=== PATIENT | male | born 1935 | race Caucasian/White ===

== ENCOUNTER 2017-03-25 06:43 | Inpatient (IN) ==
[2017-03-25] MEDS ORDERED: CeFAZolin Pre 2,000 MG/100 ML 2,000 MG/100 ML BAG IVPB ONE (07:09)
[2017-03-25] MEDS ORDERED: Lidocaine -MPF 1% 2 ML VIAL ID ONE (07:09)
[2017-03-25] MEDS ORDERED: Ringers Solution, Lactated 1,000 ML IVC SCH (07:15)
[2017-03-25] MEDS ORDERED: Heparin 1,000 UNITS/500 mL NS 500 ML ONE (07:47)
--- NOTE | 2017-03-25 07:47 | History & Physical Report ---
Date of Encounter: 03/25/17 Time of Encounter: 07:46 24 Hour HP Update - Instructions Instructions: If the History and Physical is less than 30 days old and was completed prior to A.M. admission and or procedure and has NOT been updated on calendar day of procedure please complete this update prior to performing procedure. - Update Patient reports changes in Medical Condition: No Changes in examination, assessment, or condition: No Changes in Medication: No Preop tests/diagnostics Reviewed: Yes Surgery Remains Indicated: Yes Consent for Planned Operative Procedure(s) Verified: Yes - Pre-Operative Checklist Preoperative Checklist Indicated: Yes Prophylactic Antibiotic Ordered: Yes Home Medications Include Beta Chalo: No Beta Chalo Taken Today (Day of Surgery): No Beta Chalo Taken Yesterday (Day Prior to Surgery): No Is VTE Prophylaxis Indicated?: Yes
--- NOTE | 2017-03-25 08:10 | Anesthesia Evaluation PreOp ---
Date of Encounter: 03/25/17 Time of Encounter: 08:08 - Past History Planned Operation: R fem-pop Cardiac History: HTN, Hyperlipidemia, Arrhythmia Pulmonary History: Denies Any Significant HX SALES AND SERVICE SPECIALIST History: Denies Any Significant HX Other Medical History: Other (hx lymphoma s/p surgery, chemo, radiation to neck in 2015) Anesthesia History: No Prior Anesthetic Complications Alcohol Use: none Drug use: none Medications and Allergies Omeprazole [PriLOSEC] 40 mg PO DAILY 07/30/15 [History] Rivaroxaban [Xarelto] 20 mg PO DAILY 07/30/15 [History] Cholecalciferol (Vitamin D3) [Vitamin D3] 2,000 unit PO DAILY 02/14/16 [History] Simvastatin [Zocor] 0.5 tab PO QPM 02/14/16 [History] Ascorbic Acid/Vitamin E/Biotin [Hair Skin Nails-Biotin Gummies] 1 each PO DAILY 06/16/16 [History] Diltiazem CD (24hr) [Cardizem CD] 240 mg PO DAILY 01/26/17 [History] Allergies No Known Allergies Allergy (Verified 01/28/16 13:17) - Meds/Allergy Pre-op Review Medications Reviewed: Yes Allergies Reviewed: Yes Beta Blockers on Current Med List: No Anesthesia Results - Labs Laboratory Tests 03/19/17 03/19/17 13:33 13:33 WBC 5.6 Hgb 13.6 Hct 40.6 Plt Count 165 APTT 29.9 Laboratory Tests 03/19/17 13:33 Sodium 140 Potassium 4.0 Chloride 103 Carbon Dioxide 26 BUN 16 Creatinine 1.26 H Est GFR ( Amer) > 60 Est GFR (Non-Af Amer) 55 L BUN/Creatinine Ratio 13 Glucose 84 - Imaging EKG: report reviewed, image reviewed (A fib) Anesthesia Exam Last Vital Signs Temp 97.7 F 03/25/17 07:28 Pulse 78 03/25/17 07:28 Resp 18 03/25/17 07:28 BP 138/79 03/25/17 07:28 Pulse Ox 97 03/25/17 07:28 Weight: 69 kg NPO (# of Hours): >> 8 hrs - HEENT Pupil (Motor): Pupils equal, EOMI Mallampati: II Teeth: Edentulous Denture Type: Upper: Complete, Lower: Complete Oral Opening: Greater than 3 - SALES AND SERVICE SPECIALIST LOC: Oriented SALES AND SERVICE SPECIALIST Motor: Normal RUE, Normal LUE, Normal RLE, Normal LLE, Normal Face - Cardiac Rhythm: Irregular Murmur: None - Pulmonary Breath Sounds: bilateral Clear Respiratory Effort: Symmetrical Anesthesia Assess/Plan ASA Score: 3 Modified Dianne Scale for Level of Consciousness: Cooperative, oriented, and tranquil Anesthetic Plan: General Monitoring Plan: Standard Monitors, A-Line Recovery Plan: PACU
[2017-03-25] MEDS ORDERED: *HR* FentaNYL (PF) 100 MCG/2 ML VIAL ONE ×2 (08:11→12:23)
[2017-03-25] MEDS ORDERED: *HR* Rocuronium Bromide 50 MG/5 ML VIAL ONE ×2 (08:11→10:32)
[2017-03-25] MEDS ORDERED: *HR* Propofol 200 MG/20 ML VIAL IVP ONE (08:11)
[2017-03-25] MEDS ORDERED: *HR* Succinylcholine 200 MG/10 ML VIAL IVP ONE (08:11)
[2017-03-25] MEDS ORDERED: Lidocaine -MPF 2% 2 ML VIAL ONE (08:12)
[2017-03-25] MEDS ORDERED: Lacri-Lube 3.5 GM TUBE ONE (08:26)
[2017-03-25] MEDS ORDERED: *HR* Phenylephrine 10 MG/ML VIAL ONE (09:35)
[2017-03-25] MEDS ORDERED: *HR* Heparin 5,000 UNIT/ML VIAL ONE ×2 (10:22→10:56)
[2017-03-25] MEDS ORDERED: *HR* HYDROmorphone (PF) 1 MG/ML SYRINGE IVP PRN (10:39)
[2017-03-25] MEDS ORDERED: Ondansetron 4 MG/2 ML VIAL IVP ONE (10:39)
[2017-03-25] MEDS ORDERED: EPHEDrine 50 MG/ML VIAL ONE (11:13)
[2017-03-25] MEDS ORDERED: Albumin Human 5% 25.0 GM/500 ML VIAL ONE (11:16)
[2017-03-25] MEDS ORDERED: Neostigmine Methylsulfate 3 MG/3 ML SYRINGE ONE (13:33)
[2017-03-25] MEDS ORDERED: Protamine Sulfate 50 MG/5 ML VIAL IVP ONE (14:09)
--- NOTE | 2017-03-25 14:34 | Operative Note ---
Date of procedure: 03/25/17 Pre-op diagnosis: claudication/PAD Post-op diagnosis: same Procedure: Right popliteal and tibial peroneal trunk and anterior tibial artery endarterectomy with bovine pericardial patch angioplasty Right femoral to tibial peroneal trunk bypass graft with 6 mm PTFE Distaflo Complications: None Anesthesia: GETA Surgeon: Jovanny Palacios Estimated blood loss (cc): 250 Specimen: None Condition: stable Disposition: PACU Procedure in Detail: History Pablo Foreman is an 82-year-old white male with known vascular disease. He is status post repair of a right common femoral artery aneurysm and angioplasty of the superficial femoral artery in February 2013. Patient has been followed in the outpatient clinic. He had deterioration of his physical status and worsening of his noninvasive testing results. He underwent angiography last week. This demonstrated right SFA and popliteal artery occlusion and 2 of the 3 tibial arteries occluded on the right lower extremity. He also has a aneurysm in the left common femoral artery and occlusion of the left superficial femoral artery. Intervention was recommended for the right upper extremity with bypass grafting. The patient comes for that procedure. Procedure After informed consent was obtained the patient was taken to the operating room. General endotracheal anesthesia was established with an arterial line placed for monitoring. The right lower extremity was sterilely prepped and draped. A timeout protocol was observed. The operation was begun at the below the knee popliteal area. An incision was made on the medial proximal aspect of the right calf. Dissection was carried down to reveal the neurovascular bundle. There was significant inflammatory change present with the artery and vein adherent to each other. This required a prolonged dissection in order to satisfactorily free the artery from the vein. Dissection was made selectively of the below the knee popliteal as well as anterior tibial and the tibial peroneal trunk. There was marked and dense thick calcified plaque in the tibial peroneal trunk. There is diffuse disease in the other vessels. Attention was then directed to the right groin. Using the old surgical incision from the operation 4 years ago the groin was entered. Dense and very thick scarring was identified and required a very tedious dissection. Eventually the common femoral artery and profunda femoris as well as superficial femoral artery were identified and controlled. Dissection was then made of the greater saphenous vein. He was identified at the groin level and to be a soft and normal diameter vessel. It was then dissected distally. When dissecting about two th[address] the way from the groin to the knee the vein became very small superficial and was unsatisfactory for use as a conduit. Therefore the use of a vein bypass was rejected as there was inadequate length available. Therefore a 6 mm PTFE was selected. A subsartorial tunnel was created and the bypass graft was passed through the tunnel. 5000 units of heparin were administered intravenously. After a three- minute delay the below the knee popliteal and tibial peroneal trunk were then opened. The patient had dense thick and calcific plaque present here. The vessel was then dissected of this plaque. This allowed for backbleeding from the anterior tibial the distal tibials as well as the below the knee popliteal artery. This area was flushed with heparinized saline. A bovine pericardial patch was then fashioned over this endarterectomy site. The bovine pericardium was sewn into position using 2 6-0 Prolene sutures. After this was accomplished the synthetic graft was anastomosed using endograft to side of bovine pericardial patch. This was sewn into position again using 6-0 Prolene. After appropriate backbleeding and flushing this distal anastomotic and tibial peroneal trunk area was opened. The graft was then clamped. Attention was then directed to the common femoral artery and the proximal anastomosis. An arteriotomy was made over the graft and the distal aspect of the common femoral artery. Chronic and subacute thrombus was identified. This was removed. Attempts at passing a 4 [place] Alondra catheter into the superficial femoral artery were unsuccessful and blocked by chronic clot. Clot was removed from the distal aspect of the common femoral artery that appeared to be subacute and age. The profunda femoris artery remains open. The synthetic bypass graft was then anastomosed end to side to the common femoral artery interposition graft. 6 -0 Prolene suture was used again for this anastomosis. After appropriate backbleeding and flushing the graft was opened. The patient tolerated this well. There is no hemodynamic distress. Doppler signals were identified over the graft and augustine vessels exposed in the groin and thigh and calf area. Doppler signals were also identified over the 2 cells pedis and posterior tibial artery at the ankle. The wounds were then irrigated and hemostasis achieved. A number of topical agents were needed to be used to control the bleeding and oozing at the distal aspect. Eventually 10 mg of protamine were administered to reverse the heparin effect. With this done all the incisions were irrigated and closed using absorbable suture. [place] were used to close the skin edges. Dry sterile dressings were applied. The patient was extubated in the operating room and taken to the recovery room in stable condition. There were no intraoperative complications.
[2017-03-25] MEDS ORDERED: *HR* Morphine 2 MG/ML SYRINGE IVP PRN ×2 (15:30)
[2017-03-25] MEDS ORDERED: Naloxone 0.4 MG/ML INJ IVP PRN (15:30)
[2017-03-25] MEDS ORDERED: Ondansetron 4 MG/2 ML VIAL IVP PRN (15:30)
[2017-03-25] MEDS ORDERED: Acetaminophen 325 MG TABLET PO PRN (15:30)
--- NOTE | 2017-03-25 15:49 | Anesthesia Evaluation Post Op ---
Date of Encounter: 03/25/17 Time of Encounter: 15:48 - Vital Signs Vital Signs: Last Vital Signs Temp 97.4 F L 03/25/17 15:10 Pulse 68 03/25/17 15:30 Resp 12 03/25/17 15:30 BP 121/70 03/25/17 15:30 Pulse Ox 95 03/25/17 15:30 - Lungs Lungs: Clear Ascult./Percussion - Airway Airway: Non-obstructed - Cardiovascular Baseline Rhythm - Mental Status Mental Status: Alert & Oriented, Answers Appropriately - Pain Pain Scale: 3 - Nausea Vomiting Nausea Vomiting: Not Present - Hydration Hydration: Ice chips - Discharge PostOp Status: Transfer Patient to floor
[2017-03-25] MEDS: ceFAZolin 2,000 MG in D5% in Water 100 ML IVPB SCH ×2 (16:59→23:41)
[2017-03-25] MEDS: *HR* HYDROcodone/Acet 5/325 mg TABLET PO PRN (20:08)
[2017-03-26 05:56] LABS: Hematocrit 26.4 % (37.5-50.1); Immature Granulocytes % 0.4 % (0-4); Lymphocytes # 1.4 K/mcL (0.6-4.6); Lymphocytes % 24.5 %; Mean Corpuscular Hemoglobin 27.4 pg (28.0-33.3); Mean Corpuscular Volume 83.3 fL (83.0-100.0); Mean Platelet Volume 9.7 fL (9.4-12.4); Monocytes # 0.5 K/mcL (0.0-1.3); Neutrophils # 3.8 K/mcL (1.6-8.9); Platelet Count 118 K/mcL (140-400); Red Blood Count 3.17 M/mcL (4.19-5.50); Red Cell Distribution Width 15.9 % (11.5-14.5); Segmented Neutrophils % 66.1 %
[2017-03-26 05:59] LABS: BUN/Creatinine Ratio 13 (6-26); Blood Urea Nitrogen 15 mg/dL (8-26); Calcium 8.3 mg/dL (8.6-10.8); Carbon Dioxide 25 mEq/L (19-29); Chloride 105 mEq/L (98-109); Glucose 129 mg/dL (70-99); Osmolality,Calculated 289 (280-300); Potassium 4.2 mEq/L (3.5-4.5); Sodium 138 mEq/L (136-145); eGFR For African Americans > 60 (> 60); eGFR For Non-African Americans > 60 (> 60)
[2017-03-26 06:19] LABS: Hemoglobin 8.7 g/dL (12.9-16.9)
[2017-03-26] MEDS: ceFAZolin 2,000 MG in D5% in Water 100 ML IVPB SCH (07:38)
[2017-03-26] MEDS ORDERED: Diltiazem CD (24hr) 240 MG CAPSULE PO SCH (09:00)
[2017-03-26] MEDS ORDERED: Multivit/Ca/Min/Fe/FA 1 TAB TABLET PO SCH (09:00)
[2017-03-26] MEDS ORDERED: NON-FORMULARY MEDICATION 1 EACH EACH (Multivits Min/Iron/Fa/Herb#186 [Hair, Skin And Nails PO SCH (09:00)
--- NOTE | 2017-03-26 09:21 | Discharge Summary ---
Date of Encounter: 03/26/17 Time of Encounter: 09:00 - Discharge Diagnosis (1) PAD (peripheral artery disease) Priority: Primary Status: Chronic Comments: The patient has recurrent right superficial femoral and popliteal artery disease which has progressed onto chronic total occlusion of the superficial femoral and popliteal artery as well as diffuse tibial artery disease. (2) Bilateral iliac artery aneurysm Priority: Secondary Status: Chronic Comments: Known bilateral common iliac artery aneurysms (3) Femoral artery aneurysm, left Priority: Secondary Status: Chronic Comments: Chronic left common femoral artery aneurysm (4) Postoperative anemia due to acute blood loss Priority: Secondary Status: Acute Comments: Acute blood loss anemia following elective surgery in elderly patient with multiple comorbid conditions. Blood loss is expected and anticipated in the extensive revascularization that the patient underwent yesterday (5) Atrial fibrillation, chronic Priority: Secondary Status: Chronic Comments: Chronic atrial fibrillation under medical treatment - Discharge Medications Prescriptions: HYDROcodone/Acet 5/325 mg [[place] 5-325 mg] 1 tab PO Q6H PRN #14 tablet PRN Reason: Moderate Pain Home Medications: Omeprazole [PriLOSEC] 40 mg PO DAILY 07/30/15 [History] Rivaroxaban [Xarelto] 20 mg PO DAILY 07/30/15 [History] Simvastatin [Zocor] 5 mg PO QPM 02/14/16 [History] Diltiazem CD (24hr) [Cardizem CD] 240 mg PO DAILY 01/26/17 [History] Multivitamin [Multi-Day Vitamins] 1 tab PO DAILY 03/25/17 [History] Multivits Min/Iron/FA/Herb#186 [Hair, Skin and Nails Caplet] 1 tab PO DAILY [History] HYDROcodone/Acet 5/325 mg [[place] 5-325 mg] 1 tab PO Q6H PRN #14 tablet 03/26/17 [Rx] Allergies/Adverse Reactions: Allergies No Known Allergies Allergy (Verified 01/28/16 13:17) Date of admission: 03/25/17 15:04 Primary care physician: Ambrosio Burdick DO Consults: none Procedure(s) Performed: Right femoral to tibial peroneal trunk bypass graft with 6 mm PTFE Distaflo Right popliteal and tibial artery endarterectomy with bovine pericardial patch angioplasty Discharging clinician: Jovanny Palacios Anticipated date of discharge: 03/26/17 - Patient Status Disposition: Home, Self-Care Condition: Good Functional capacity at discharge: uses cane/walker Overall status at discharge: patient is progressing back to baseline - Discharge Instructions Follow Up With: Ambrosio Burdick DO [Primary Care Provider] - 03/31/17 11:30 am () Jovanny Palacios MD [Partnered Physician] - 04/08/17 11:30 am Additional Instructions: Encourage regular and daily ambulation as much as possible. Elevate right lower extremity while in the seated position. Keep right lower extremity surgical sites dry for 5 days following surgery. Follow-up with Dr. Palacios in 2 weeks. Resume usual home medication including Xarleto later today. No automobile driving. No lifting greater than 10 pounds. - Diet and Activity Activity: increase activity as tolerated Diet: advance to your usual diet - Hospital Course Hospital course: Mr. Foreman is a 82 year old male With known peripheral vascular occlusive disease and aneurysm disease. He presents with significant right lower extremity symptoms and abnormal physical exam and noninvasive testing. An angiogram performed last week demonstrated severe right superficial femoral and popliteal and tibial artery disease. An endovascular solution was not feasible and so therefore the patient was admitted for direct surgical reconstruction. He was also found to have a left superficial femoral artery chronic total occlusion and redemonstration of aneurysms of the common iliac arteries bilaterally and the left common femoral artery. The left femoral artery and superficial femoral artery will need to be dealt with as an inpatient with surgical reconstruction sometime in the future after he has recovered from this right lower extremity surgery. The greater saphenous vein in the right lower extremity was found to be inadequate and could not be used as a conduit. Therefore a synthetic bypass graft was constructed from the common femoral artery to the tibial peroneal trunk. There was significant disease present in the popliteal and tibial system as noted on the angiogram and so therefore he required an extensive endarterectomy of the below the knee popliteal and tibial peroneal trunk and orifice of the anterior tibial artery as the anterior tibial artery was the dominant runoff to the right lower extremity. The patient had no periprocedural problems. He was noted to have mild acute blood loss anemia on his repeat hemoglobin that was checked this morning. He is asymptomatic from this process and does not require transfusion. His chronic atrial fibrillation remained stable with a pulse rate in the 90s to 100s. His Xarleto will be restarted later today. The patient will ambulate and if his ambulation is safe we will permit him to be discharged later this afternoon. Instructions in regards to his diet and exercise and wound care will be provided to the patient prior to discharge. - Time Spent with Patient Total time spent providing and/or coordinating discharge services: Exam Vital Signs, Last 4 Hours Temp Pulse Resp BP 03/26/17 07:30 97.6 F 89 16 109/53 General: Present: Conversant, No Apparent Distress HEENT: Present: Atraumatic, Normocephaly Neck: Absent: JVD Cardiac: Present: Irregular Rhythm Lungs: Present: Normal Breath Sounds Neuro: Present: Alert and responsive, No focal deficits noted Abdomen: Present: Soft Vascular: Present: Edema (Mild right lower extremity edema following surgery which is anticipated in this circumstance.), Color/Temperature (Improved color and temperature of right foot following bypass surgery.), Other (Doppler signals 3 at right ankle following surgery.) Skin: Present: No rashes noted on visualized skin - VTE Documentation of Mechanical Device: Intermittent pneumatic compression device
[2017-03-26] MEDS: *HR* HYDROcodone/Acet 5/325 mg TABLET PO PRN ×2 (10:52→17:36)
[2017-03-26 16:07] VITALS: BP 115/71
== END 2017-03-26 18:28 | disposition home or self-care (01) | DRG 253 ==
LOC: SAMDAY 06:43 → 2NNU 15:04
PROVIDERS: ADMIT Surgery Vascular Surgery; ATTEND Surgery Vascular Surgery

== ENCOUNTER 2018-04-27 20:01 | Observation (INO) ==
[2018-04-28] MEDS ORDERED: Naloxone 0.4 MG/ML INJ IVP PRN (00:03)
[2018-04-28] MEDS ORDERED: Acetaminophen 325 MG TABLET PO PRN (00:03)
[2018-04-28] MEDS ORDERED: Albuterol Neb 0.63 MG/3 ML VIAL IH PRN (00:11)
[2018-04-28] MEDS ORDERED: Ipratropium/Albuterol Neb 3 ML IH PRN (00:12)
--- NOTE | 2018-04-28 01:03 | Internal Med History&Physical ---
Date of Encounter: 04/27/18 Time of Encounter: 23:30 Internal Medicine - H&P: HPI Chief complaint: Hemoptysis Admitted From: Home Plans for Post Hospital Care: Home History of present illness: Mr. Foreman is a 83 year old male presented to ER for hemoptysis. Past medical history is significant for A. fib on xarelto, COPD, anemia, hyperlipidemia. Patient has hemoptysis from yesterday evening. Patient has several times red or dark blood in sputum. Most of the time it is pure blood. Patient has increased cough recently. Patient also reports fatigue and exertional intolerance for several weeks. Patient has exertional shortness of breath and has desaturation on exertion. Patient denies chest pain, nausea. Patient reported low-grade fever at 100.4 on the night before last night. Patient was also found elevated troponin. Patient denies coffee ground emesis. Patient is taking iron pills, which caused black stool. Patient last xarelto pill was yesterday evening (04/26 evening). Past Med Surg Social Fam HX - Past Medical History Medical history: atrial fibrillation, cancer, coronary artery disease, DVT, GERD , hyperlipidemia, hypertension, malignancy Additional medical history: iliac aneurysm repair Psychiatric history: no psych history - Past Surgical History Surgical History: other Additional surgical history: R leg Iliac Aneurysm Repair, left ear drum repair - Social History Smoking Status: Former smoker Smokeless Tobacco Status: No Alcohol use: none Drug use: none - Family History Mother Living Status: Hx Family Cardiac Disorders: Yes Father Living Status: Hx Family Cardiac Disorders: Yes Internal Medicine - H&P: Meds Rivaroxaban [Xarelto] 20 mg PO DAILY 07/30/15 [History] Simvastatin [Zocor] 10 mg PO QPM 02/14/16 [History] Diltiazem CD (24hr) [Cardizem CD] 240 mg PO DAILY 01/26/17 [History] Albuterol Neb [AccuNeb] 0.63 mg IH PRN PRN 04/27/18 [History] Albuterol Sulfate [Proair Hfa] 2 puff IH Q6H 04/27/18 [History] Budesonide/Formoterol 160/4.5 [Symbicort 160/4.5] 1 puff IH BIDR 04/27/18 [ History] Cholecalciferol (Vitamin D3) [Vitamin D] 2,000 unit PO DAILY 04/27/18 [History] Ferrous Sulfate [High Potency Iron] 65 mg PO DAILY 04/27/18 [History] Omeprazole [PriLOSEC] 20 mg PO DAILY 04/27/18 [History] 3 Allergy/AdvReac Type Severity Reaction Status Date / Time No Known Allergies Allergy Verified 02/18/18 14:34 All Systems PM: A 10-system review of systems was performed and is negative for pertinent findings except as documented above in the HPI. - Constitutional Vitals: Temp Pulse Resp BP Pulse Ox 98.1 F 96 14 100/54 98 04/27/18 21:54 04/27/18 21:54 04/27/18 21:54 04/27/18 21:54 04/27/18 21:54 General appearance: Present: A&O X 3, no acute distress, answers questions appropriately - Head Head exam: Present: atraumatic, normocephalic - Eye Eye exam: Present: PERRL, conjuntiva pink, sclera anicteric Pupils: Present: PERRL - Neck Neck exam general surgery: Present: supple, trachea midline. Absent: lymphadenopathy - Respiratory Respiratory exam: Present: CTAB. Absent: accessory muscle use, rales, rhonchi, wheezes - Cardiovascular Cardiovascular exam: Present: RRR, +S1, +S2. Absent: diastolic murmur, gallop, rubs, systolic murmur - GI/Abdominal GI/Abdominal exam: Present: normal bowel sounds, soft, no peritoneal signs. Absent: distended, tenderness - Extremities Exam Extremities exam: Present: warm, radial pulses palpable and symmetrical. Absent : calf tenderness, cyanotic, pedal edema - Neurological Exam Neurological exam: Present: CN II-XII intact, oriented X3, no focal deficits. Absent: pronater drift, facial droop, speech deficit - Skin Skin exam: Present: dry, intact - Assessment and plan (1) Elevated TSH Current Visit: Yes Status: Acute Assessment and plan: Mild elevated TSH. Will check T3-T4 level. Probably subclinical hypothyroidism , may need close follow-up as outpatient. (2) Hemoptysis Current Visit: Yes Status: Acute Assessment and plan: Etiology is undetermined. Patient is on xarelto. - We will hold xarelto at this point. - CT chest to rule out mass. - Pulmonology consult for further management. - Closely monitor patient. Oxygen supportive treatment. (3) COPD (chronic obstructive pulmonary disease) Current Visit: Yes Status: Acute Assessment and plan: No wheezing at this point. Continue home medications. Qualifiers: COPD type: emphysema Emphysema type: unspecified Qualified Code(s): J43.9 - Emphysema, unspecified (4) Anemia Current Visit: No Status: Acute Assessment and plan: We will place patient on anemia workup. Closely monitor H&H. Qualifiers: Anemia type: iron deficiency Iron deficiency anemia type: unspecified iron deficiency Qualified Code(s): D50.9 - Iron deficiency anemia, unspecified (5) Elevated troponin I level Current Visit: No Status: Acute Assessment and plan: Patient denies chest pain. - Continuous cardiac monitoring - Track 3 sets of troponin (6) Exertional dyspnea Current Visit: No Status: Acute Assessment and plan: Etiology is undetermined. Probably due to anemia, COPD, and the possible CHF. We will check BNP and echocardiogram. (7) Atrial fibrillation, chronic Current Visit: No Status: Chronic Assessment and plan: Heart rate is well controlled. Hold xarelto at this point because of hemoptysis. (8) PAD (peripheral artery disease) Current Visit: No Status: Chronic Assessment and plan: Continue home medications. - Time Spent With Patient Total time spent is greater than 50% in coordination of care (as documented) at patient's floor/unit and/or counseling patient: 40 minutes Greater than 35 minutes
[2018-04-28 01:21] LABS: Basophils % 0.3 %; Eosinophils % 0.4 %; Hematocrit 28.4 % (37.5-50.1); Immature Granulocytes % 0.3 % (0-4); Lymphocytes # 2.6 K/mcL (0.6-4.6); Mean Corpuscular HGB Conc 31.7 g/dL (31.6-35.5); Mean Corpuscular Hemoglobin 23.4 pg (28.0-33.3); Mean Corpuscular Volume 73.8 fL (83.0-100.0); Mean Platelet Volume 8.8 fL (9.4-12.4); Monocytes # 0.5 K/mcL (0.0-1.3); Monocytes % 7.3 %; Neutrophils # 3.8 K/mcL (1.6-8.9); Platelet Count 255 K/mcL (140-400); Red Blood Count 3.85 M/mcL (4.19-5.50); Red Cell Distribution Width 16.9 % (11.5-14.5); Segmented Neutrophils % 54.7 %
[2018-04-28 01:42] LABS: % Iron Saturation 14 % (20-55); Iron 23 mcg/dL (65-175); Transferrin 120 mg/dL (203-362)
[2018-04-28 01:43] LABS: BUN/Creatinine Ratio 19 (6-26); Blood Urea Nitrogen 15 mg/dL (8-23); Calcium 8.4 mg/dL (8.6-10.3); Carbon Dioxide 28 mEq/L (23-29); Chloride 100 mEq/L (98-107); Glucose 107 mg/dL (70-105); Magnesium 1.5 mg/dL (1.6-2.6); Osmolality,Calculated 281 (280-300); Potassium 3.6 mEq/L (3.5-5.1); Sodium 135 mEq/L (136-145); eGFR For African Americans > 60 (> 60); eGFR For Non-African Americans > 60 (> 60)
[2018-04-28 01:56] LABS: Triiodothyronine (T3) Free 2.49 pg/mL (2.50-3.90)
[2018-04-28 01:59] LABS: Ferritin > 1500 ng/mL (20-250)
[2018-04-28 02:00] LABS: Triiodothyronine (T3) Total 0.42 ng/mL (0.87-1.78)
[2018-04-28 02:03] LABS: Folate 13.9 ng/mL (3.0-16.0)
[2018-04-28] MEDS ORDERED: Diltiazem CD (24hr) 240 MG CAPSULE PO SCH (09:00)
--- NOTE | 2018-04-28 09:30 | Pulmonology Consult Note ---
<Aicha Cabrera M - Last Filed: 04/28/18 11:16> Date of Encounter: 04/28/18 Medications and Allergies Rivaroxaban [Xarelto] 20 mg PO DAILY 07/30/15 [History] Simvastatin [Zocor] 10 mg PO QPM 02/14/16 [History] Diltiazem CD (24hr) [Cardizem CD] 240 mg PO DAILY 01/26/17 [History] Albuterol Neb [AccuNeb] 0.63 mg IH PRN PRN 04/27/18 [History] Albuterol Sulfate [Proair Hfa] 2 puff IH Q6H 04/27/18 [History] Budesonide/Formoterol 160/4.5 [Symbicort 160/4.5] 1 puff IH BIDR 04/27/18 [ History] Cholecalciferol (Vitamin D3) [Vitamin D] 2,000 unit PO DAILY 04/27/18 [History] Ferrous Sulfate [High Potency Iron] 65 mg PO DAILY 04/27/18 [History] Omeprazole [PriLOSEC] 40 mg PO DAILY 04/28/18 [History] 3 Allergy/AdvReac Type Severity Reaction Status Date / Time No Known Allergies Allergy Verified 04/28/18 07:45 All Systems: The remainder of the systems were reviewed and are negative Physical Examination Vital Signs: Vital Signs, Last 4 Hours Temp Pulse Resp BP Pulse Ox 04/28/18 10:46 98.2 F 110 16 137/82 96 Results - Laboratory Findings CBC and BMP: 04/28/18 00:41 04/28/18 00:41 Abnormal lab findings: Abnormal lab results RBC 3.85 M/mcL (4.19-5.50) L 04/28/18 00:41 Hgb 9.0 g/dL (12.9-16.9) L 04/28/18 00:41 Hct 28.4 % (37.5-50.1) L 04/28/18 00:41 MCV 73.8 fL (83.0-100.0) L 04/28/18 00:41 MCH 23.4 pg (28.0-33.3) L 04/28/18 00:41 RDW 16.9 % (11.5-14.5) H 04/28/18 00:41 MPV 8.8 fL (9.4-12.4) L 04/28/18 00:41 Sodium 135 mEq/L (136-145) L 04/28/18 00:41 Glucose 107 mg/dL (70-105) H 04/28/18 00:41 Calcium 8.4 mg/dL (8.6-10.3) L 04/28/18 00:41 Magnesium 1.5 mg/dL (1.6-2.6) L 04/28/18 00:41 Iron 23 mcg/dL (65-175) L 04/28/18 00:41 % Saturation 14 % (20-55) L 04/28/18 00:41 Transferrin 120 mg/dL (203-362) L 04/28/18 00:41 Ferritin > 1500 ng/mL (20-250) H 04/28/18 00:41 Troponin I 0.08 ng/mL (< 0.04) H* 04/28/18 06:12 B-Natriuretic Peptide 472 pg/mL (Less than 100) H 04/28/18 00:41 Free T3 2.49 pg/mL (2.50-3.90) L 04/28/18 00:41 Total T3 0.42 ng/mL (0.87-1.78) L 04/28/18 00:41 - Clinical Findings Intake & Output: Intake & Output 04/27/18 04/28/18 04/28/18 23:59 07:59 15:59 Output Total 0 / 0 100 / 100 Balance 0 / 0 -100 / -100 Weight 60.4 kg Consult Discharge Plan - Plan Referrals: Ambrosio Burdick DO [Primary Care Provider] - - Attending Attestation I examined this patient and my medical decision-making was reviewed with the Resident Physician. I agree with the documented findings, disposition and treatment plan as described except to the extent set forth below. Patient seen and examined. Labs, radiology, chart personally reviewed. Agree with resident's history and physical, assessment, plan with following comments: ACCOUNTS PAYABLE ASSISTANT: Patient follows commands, Pulmonary: Acceptable oxygenation and ventilation. Patient denies any significant hemoptysis at this time and reviewed CT chest with evidence of emphysema for that reason treatment with systemic steroid and empiric antibiotic is reasonable and we will plan for airway inspection. Cardiovascular: Recommend to check with the freezer unloader regarding anticoagulation. Thank you for consultation <Swapna Lawson - Last Filed: 04/28/18 14:14> Date of Encounter: 04/28/18 Time of Encounter: 08:00 Assessment and Plan (1) Hemoptysis Current Visit: Yes Status: Acute Patient reports single episode with small amount of blood produced May be related to xarelto use CT shows evidence of emphysema with b/l lower lobe atelectasis, possible development LLL infiltrate Bronchoscopy tomorrow to inspect airway NPO starting tomorrow morning Recommend consideration to ask cardiology for their rec regarding anticoagulation Holding xarelto for now (2) COPD (chronic obstructive pulmonary disease) Current Visit: Yes Status: Acute CT shows evidence of emphysema with b/l lower lobe atelectasis, possible development LLL infiltrate--reasonable to treat with steroids and empiric abx for now Satisfactory oxygenation and ventilation since admission Start Solu-Medrol 40mg IVP Q8H Start levaquin 500mg PO daily Continue DuoNebs PRN Continue Symbicort scheduled Qualifiers: COPD type: emphysema Emphysema type: unspecified Qualified Code(s): J43.9 - Emphysema, unspecified (3) Anemia Current Visit: Yes Status: Acute Hx of iron deficiency anemia Hgb decreased since admission, Hgb 10.5 --> 9.0 Baseline Hgb range between 11 and 12.5 during January-February 2018 Qualifiers: Anemia type: iron deficiency Iron deficiency anemia type: unspecified iron deficiency Qualified Code(s): D50.9 - Iron deficiency anemia, unspecified (4) Elevated troponin I level Current Visit: Yes Status: Acute Troponin 0.08 x2 No c/o chest pain Echo results pending at this time (5) Atrial fibrillation, chronic Current Visit: Yes Status: Chronic EKG yesterday shows Afib, rate controlled Takes xarelto for anticoagulation at home Regular rhythm and rate on exam Plan Hold xarelto for now Continue home cardizem (6) DVT prophylaxis Current Visit: Yes Status: Acute EPCDs Holding xarelto for now History of Present Illness Consult date: 04/28/18 Reason for consult: cough History of present illness: Patient is an 83-year-old male with a past medical history of atrial fibrillation on xarelto, non-Hodgkins lymphoma (2014), coronary artery disease , DVT, hypertension, and history of R iliac aneurysm repair who presents for hemoptysis. Patient says that he had 1 episode of coughing up blood either yesterday or the day before. Admits to very small amounts of blood produced with cough. Patient says this has never happened before. He has been reporting fatigue and exertional intolerance the past several weeks with exertional shortness of breath. He denies any chest pain. Reports fever of 100.4 prior to admission. Lab showed an elevated troponin of 0.08 2. Last time patient took his Xarelto was yesterday evening. Past Med Surg Social Fam HX - Past Medical History Medical history: atrial fibrillation, cancer, coronary artery disease, DVT, GERD , hyperlipidemia, hypertension, malignancy Additional medical history: iliac aneurysm repair Psychiatric history: no psych history - Past Surgical History Surgical History: other Additional surgical history: R leg Iliac Aneurysm Repair, left ear drum repair - Social History Smoking Status: Former smoker Smokeless Tobacco Status: No Alcohol use: none Drug use: none - Family History Mother Living Status: Hx Family Cardiac Disorders: Yes Father Living Status: Hx Family Cardiac Disorders: Yes All Systems: The remainder of the systems were reviewed and are negative - Constitutional Constitutional: as per HPI - Cardiovascular Cardiovascular: as per HPI - Respiratory Respiratory: as per HPI - Hematologic/Lymphatic Hematologic/Lymphatic: as per HPI Physical Examination Vital Signs: Vital Signs, Last 4 Hours Temp Pulse Resp BP Pulse Ox 04/28/18 06:59 97.6 F 97 16 128/73 98 General appearance: no acute distress ENT: oropharynx moist Effort: normal Auscultation: bilateral: clear Cardiovascular: regular rate and rhythm Gastrointestinal: soft, non-tender, non-distended Extremities: pulses normal, other (Minor calf tenderness b/l and Giovana's sign negative b/l) normal mental status, non-focal exam mood appropriate, affect normal Results - Laboratory Findings CBC and BMP: 04/28/18 00:41 04/28/18 00:41 Abnormal lab findings: Abnormal lab results RBC 3.85 M/mcL (4.19-5.50) L 04/28/18 00:41 Hgb 9.0 g/dL (12.9-16.9) L 04/28/18 00:41 Hct 28.4 % (37.5-50.1) L 04/28/18 00:41 MCV 73.8 fL (83.0-100.0) L 04/28/18 00:41 MCH 23.4 pg (28.0-33.3) L 04/28/18 00:41 RDW 16.9 % (11.5-14.5) H 04/28/18 00:41 MPV 8.8 fL (9.4-12.4) L 04/28/18 00:41 Sodium 135 mEq/L (136-145) L 04/28/18 00:41 Glucose 107 mg/dL (70-105) H 04/28/18 00:41 Calcium 8.4 mg/dL (8.6-10.3) L 04/28/18 00:41 Magnesium 1.5 mg/dL (1.6-2.6) L 04/28/18 00:41 Iron 23 mcg/dL (65-175) L 04/28/18 00:41 % Saturation 14 % (20-55) L 04/28/18 00:41 Transferrin 120 mg/dL (203-362) L 04/28/18 00:41 Ferritin > 1500 ng/mL (20-250) H 04/28/18 00:41 Troponin I 0.08 ng/mL (< 0.04) H* 04/28/18 06:12 B-Natriuretic Peptide 472 pg/mL (Less than 100) H 04/28/18 00:41 Free T3 2.49 pg/mL (2.50-3.90) L 04/28/18 00:41 Total T3 0.42 ng/mL (0.87-1.78) L 04/28/18 00:41 - Clinical Findings Intake & Output: Intake & Output 04/27/18 04/28/18 04/28/18 23:59 07:59 15:59 Output Total 0 / 0 Balance 0 / 0 Weight 60.4 kg
[2018-04-28] MEDS: Budesonide/Formoterol 160/4.5 MDI IH SCH ×2 (11:25→22:24)
--- NOTE | 2018-04-28 12:09 | Internal Med Progress Note ---
Date of Encounter: 04/28/18 Time of Encounter: 12:08 - Assessment and plan (1) PAD (peripheral artery disease) Current Visit: No Status: Chronic Assessment and plan: Continue home medications. (2) Atrial fibrillation, chronic Current Visit: Yes Status: Chronic Assessment and plan: Mireya CD increased for rate control per cardiology Hold xarelto at this point because of hemoptysis-he did have elevated troponin consulted cardiology. (3) Elevated troponin I level Current Visit: Yes Status: Acute Assessment and plan: Patient denies chest pain. - Continuous cardiac monitoring - Track 3 sets of troponin Cardiology consult in most likely demand ischemia secondary to hypoxia emphysema continue with aspirin and statin (4) Exertional dyspnea Current Visit: No Status: Acute Assessment and plan: Etiology is undetermined. Suspect related to COPD appears to have development of left lower infiltrate as well as anemia could be a factor (5) Anemia Current Visit: Yes Status: Acute Assessment and plan: No active bleeding at this time Continue with ferrous sulfate Closely monitor H&H. Qualifiers: Anemia type: iron deficiency Iron deficiency anemia type: unspecified iron deficiency Qualified Code(s): D50.9 - Iron deficiency anemia, unspecified (6) Elevated TSH Current Visit: Yes Status: Acute Assessment and plan: Mild elevated TSH. Probably subclinical hypothyroidism, may need close follow- up as outpatient. (7) Hemoptysis Current Visit: Yes Status: Acute Assessment and plan: Patient experienced one episode of small hemoptysis may be related to Xarelto use Pulmonology did see the patient showed evidence of emphysema Bronchoscopy tomorrow to inspect airway nothing by mouth starting tomorrow morning Cardiology consulted and appreciate recommendation Holding Xarelto for now (8) COPD (chronic obstructive pulmonary disease) Current Visit: Yes Status: Acute Assessment and plan: We will continue with Solu-Medrol 40 IV every 8 Oxygen as needed Levaquin 5 mg by mouth daily Do a nebs when necessary Continue with Symbicort Qualifiers: COPD type: emphysema Emphysema type: unspecified Qualified Code(s): J43.9 - Emphysema, unspecified (9) DVT prophylaxis Current Visit: Yes Status: Acute Assessment and plan: SCD due to hemoptysis (10) Dysphagia Current Visit: Yes Status: Acute Assessment and plan: reports patient has been having difficulty swallowing stating that he is been coughing while eating. Patient did have radiation treatment to his neck concern for possible strictures also family reports the patient has been behaving strangely after concerned about possible stroke. We will obtain modified barium swallow-silent aspiration with thin liquids speech therapy recommending nectar thickened liquids We will obtain CT of head to rule out possible CVA Qualifiers: Dysphagia type: unspecified Qualified Code(s): R13.10 - Dysphagia, unspecified (11) Hypomagnesemia Current Visit: Yes Status: Acute Assessment and plan: Magnesium 1.5 we will replace and recheck in a.m. - Time Spent With Patient Total time spent is greater than 50% in coordination of care (as documented) at patient's floor/unit and/or counseling patient: - Subjective Interval history: Patient was seen and examined at bedside family is at bedside-expressing concern about shortness of breath and patient's weakness. Patient presented to [facility] after experiencing hemoptysis however family is more concerned about shortness of breath requesting cardiology consult. Patient does have an elevated troponin. Apparently he has also been experiencing difficulty swallowing undergoing a barium swallow. Awaiting recommendations from cardiology and pulmonology - Constitutional Vitals: Temp Pulse Resp BP Pulse Ox 98.2 F 110 16 137/82 96 04/28/18 10:46 04/28/18 10:46 04/28/18 10:46 04/28/18 10:46 04/28/18 10:46 General appearance: Present: A&O X 3, no acute distress, answers questions appropriately - Head Head exam: Present: atraumatic, normocephalic - Eye Eye exam: Present: PERRL, conjuntiva pink, sclera anicteric Pupils: Present: PERRL - Neck Neck exam general surgery: Present: supple, trachea midline. Absent: lymphadenopathy - Respiratory Respiratory exam: Present: CTAB. Absent: accessory muscle use, rales, rhonchi, wheezes - Cardiovascular Cardiovascular exam: Present: RRR, +S1, +S2. Absent: diastolic murmur, gallop, rubs, systolic murmur - GI/Abdominal GI/Abdominal exam: Present: normal bowel sounds, soft, no peritoneal signs. Absent: distended, tenderness - Extremities Exam Extremities exam: Present: warm, radial pulses palpable and symmetrical. Absent : calf tenderness, cyanotic, pedal edema - Neurological Exam Neurological exam: Present: CN II-XII intact, oriented X3, no focal deficits. Absent: pronater drift, facial droop, speech deficit - Skin Skin exam: Present: dry, intact Internal Medicine: Result - Labs CBC & Chem 7: 04/28/18 00:41 04/28/18 00:41 Labs: Short CBC 04/28/18 Range/Units 00:41 WBC 7.0 (4.3-11.1) K/mcL Hgb 9.0 L (12.9-16.9) g/dL Hct 28.4 L (37.5-50.1) % Plt Count 255 (140-400) K/mcL Neutrophils # 3.8 (1.6-8.9) K/mcL BMP 04/28/18 00:41 Sodium 135 L Potassium 3.6 Chloride 100 Carbon Dioxide 28 BUN 15 Creatinine 0.77 Glucose 107 H Calcium 8.4 L Cardiac Enzymes 04/28/18 04/28/18 Range/Units 00:41 06:12 Troponin I 0.08 H* 0.08 H* (< 0.04) ng/mL - Impressions Impressions Chest CT 04/28/18 08:00 IMPRESSION: 1. Emphysema with bilateral lower lobe atelectasis and potential developing infiltrate left lower lobe. Otherwise no new acute intrathoracic abnormality. 2. Stable indeterminate mediastinal lymph nodes. 3. Stable upper abdominal mesenteric lymph nodes correlating with patient's clinical history of lymphoma. D/ / 04/28/2018 09:33:37 Foster Odom MD / amandaay Interpreting Provider: Foster Odom MD Consult Discharge Plan - Plan Referrals: Ambrosio Burdick DO [Primary Care Provider] -
--- NOTE | 2018-04-28 13:49 | Cardiology Consult Note ---
<Shamir Aleman Maryuri - Last Filed: 04/28/18 13:57> Date of Encounter: 04/28/18 Time of Encounter: 13:40 Assessment and Plan (1) Elevated troponin I level Current Visit: Yes Status: Acute Mild adynamic troponin elevation at 0.07, 0.08, 0.08. H/o CAD by CT scan. EKG shows rate controlled atrial fibrillation with no acute ST/T wave changes. C/o SOB on exertion in the setting of known emphysema and developing LLl infiltrate. Pulmonary following. TTE completed and showed LVEF 55%. No WMA. Indeterminate diastolic function. Normal right ventricular structure and function. Mild mitral regurgitation. Mild tricuspid regurgitation.Moderate pulmonary hypertension.Estimated RVSP is 48 mmHg. BNP noted to be elevated at 472. Do not suspect CHF. Euvolemic on exam. Likely demand ischemia in the setting of hypoxia and emphysema. He is not a candidate for ischemic evaluation in the setting of hemoptysis. Continue treatment of lung disease and hemoptysis. Continue statin and add asa if okay from hemoptysis standpoint. (2) Atrial fibrillation, chronic Current Visit: Yes Status: Chronic H/o chronic afib. Avg HR 101 over 24 hours. Small runs atrial fibrillation with RVR seen. Increase cardizem CD for rate controll. CHDAS VASc=4. Agree with holdling xarelto for hemoptysis. Add asa if okay from pulmonology standpoint. Increased risk of CVA discussed and family voiced understanding. Discussion w patient/family: The assessment and plan as outlined above was discussed with the patient and/or family members who expressed understanding and agreement. All questions were answered. Thank you for involving us in the care of your patient. Please call with any questions. History of Present Illness Consult date: 04/28/18 Requesting physician: Emilia Thomas Consult reason: elevated troponin, anticoagulation rec Chief complaint: fatigue, hemoptysis, SOB, weight loss History of present illness: Mr. Foreman is a 83 year old male with past medical history significant for atrial fibrillation on xarelto, mild to moderate mitral regurgitation, COPD, emphysema on home o2, non-hodgkins lymphoma, coronary artery athersclerosis seen on prior CT of the chest. He presents with c/o new hemoptyisis for the past three days. His states that she thinks he coughed up blood one week ago also. He reports increased SOB and hypoxia on exertion. States his oxygen saturation quickly drop into the 70's when ambulating. He was recently started on inhalers and nebulizers and started coughing more but no improvement in SOB. C/o increased fatigue. Reports 10 lb weight loss in the last 2 months. Denies chest pain or palpitations. Denies orthopnea, PND, or edema. Pulmonology was consulted and he was started on steroids and antibiotics for his emphysema. He underwent swallow evaluation and was found to have aspiration on thin liquids. Mild acute on chronic anemia seen. Troponin found to be elevated up to 0.08 and BNP elevated at 472. Past Med Surg Social Fam HX - Past Medical History Medical history: atrial fibrillation, cancer, coronary artery disease, DVT, GERD , hyperlipidemia, hypertension, malignancy Additional medical history: iliac aneurysm repair Psychiatric history: no psych history - Past Surgical History Surgical History: other Additional surgical history: R leg Iliac Aneurysm Repair, left ear drum repair - Social History Smoking Status: Former smoker Smokeless Tobacco Status: No Alcohol use: none Drug use: none - Family History Mother Living Status: Hx Family Cardiac Disorders: Yes Father Living Status: Hx Family Cardiac Disorders: Yes Medications and Allergies Rivaroxaban [Xarelto] 20 mg PO DAILY 07/30/15 [History] Simvastatin [Zocor] 10 mg PO QPM 02/14/16 [History] Diltiazem CD (24hr) [Cardizem CD] 240 mg PO DAILY 01/26/17 [History] Albuterol Neb [AccuNeb] 0.63 mg IH PRN PRN 04/27/18 [History] Albuterol Sulfate [Proair Hfa] 2 puff IH Q6H 04/27/18 [History] Budesonide/Formoterol 160/4.5 [Symbicort 160/4.5] 1 puff IH BIDR 04/27/18 [ History] Cholecalciferol (Vitamin D3) [Vitamin D] 2,000 unit PO DAILY 04/27/18 [History] Ferrous Sulfate [High Potency Iron] 65 mg PO DAILY 04/27/18 [History] Omeprazole [PriLOSEC] 40 mg PO DAILY 04/28/18 [History] 3 Allergy/AdvReac Type Severity Reaction Status Date / Time No Known Allergies Allergy Verified 04/28/18 07:45 All Systems Review: The remainder of the systems were reviewed and are negative Physical Examination Vital Signs, Last 4 Hours Temp Pulse Resp BP Pulse Ox 04/28/18 10:46 98.2 F 110 16 137/82 96 General: Conversant, No Apparent Distress HEENT: Atraumatic, Normocephaly, Mucus Membranes Moist Neck: No JVD, Normal carotid pulses Cardiac: Other (irregular) Lungs: Other (diminished RLL) Neuro: Alert and responsive, No focal deficits noted Abdomen: Soft, Non-Tender Skin: No rashes noted on visualized skin Musculoskeletal: No Chest Wall Tenderness Extremities: No Clubbing, No Cyanosis, No Edema, Normal Pulses Results 04/28/18 00:41 04/28/18 00:41 Lab Results 04/28/18 04/28/18 04/28/18 00:41 00:41 00:41 WBC 7.0 Hgb 9.0 L Hct 28.4 L Plt Count 255 Sodium 135 L Potassium 3.6 Chloride 100 Carbon Dioxide 28 BUN 15 Creatinine 0.77 Glucose 107 H Calcium 8.4 L Magnesium 1.5 L Troponin I 0.08 H* B-Natriuretic Peptide 04/28/18 04/28/18 00:41 06:12 WBC Hgb Hct Plt Count Sodium Potassium Chloride Carbon Dioxide BUN Creatinine Glucose Calcium Magnesium Troponin I 0.08 H* B-Natriuretic Peptide [address] 04/28/18 08:00 IMPRESSION: 1. Emphysema with bilateral lower lobe atelectasis and potential developing infiltrate left lower lobe. Otherwise no new acute intrathoracic abnormality. 2. Stable indeterminate mediastinal lymph nodes. 3. Stable upper abdominal mesenteric lymph nodes correlating with patient's clinical history of lymphoma. D/ / 04/28/2018 09:33:37 [facility]dom MD [facility] Inter[facility]ting Provider: Foster Odom MD Videofluoroscopic Swallow 04/28/18 08:53 IMPRESSION: Aspiration with thin liquid. Please see separate speech pathology report for full discussion of findings and recommendations. D/ / Aj Gold MD / Aj Gold MD Interpreting Provider: Aj Gold MD - Imaging and Cardiology Echo: report reviewed (04/2017LVEF 50-55%. Normal LV chamber size, wall thickness and function. Indeterminate diastolic function. Normal right ventricular structure and function. Moderate to severely dilated left atrium. Moderately thickened mitral valve leaflets. Mild mitral regurgitation. Mild tricuspid regurgitation. No pulmonary hypertension.) - EKG Interpretation EKG results cardiology: personally reviewed (ATrial fibrillation, non specific ST changes seen.) Consult Discharge Plan - Plan Referrals: Ambrosio Burdick, [Primary Care Provider] - <Lori Hilario - Last Filed: 04/28/18 16:52> Date of Encounter: 04/28/18 - Attending Attestation I examined this patient and my medical decision-making was reviewed with the REFERRAL AND INFORMATION AIDE. I agree with the documented findings, disposition and treatment plan. Mr. Foreman presents with hemoptysis and lethargy with weight loss appearing unintentional. He was noted to have mild, flat elevation of troponins in this setting. He denies recent chest pain. ECG without ischemic findings. Echo returned demonstrating normal LV systolic function. Further cardiac workup is not warranted particularly in the setting of concern for bleeding. Agree with holding xarelto for now. Pulmonary to complete their workup. Would consider low dose aspirin pending Pulmonary workup. Of note, the states that she thinks her had a stroke 3 weeks ago noticing difficulty with speech. At the bedside, patient's oral mucosa is very dry and he has some difficulty speaking but I am unable to ascertain any particular problem with speech. He is sleepy but arousable and appears to attempt appropriate response to questions. He does not appear focal. We will defer to Hospitalist (Shamir Aleman CNP to contact) for further management and workup. No further recommendations at this time. Will sign off. Please call with questions. Assessment and Plan Discussion w patient/family: The assessment and plan as outlined above was discussed with the patient and/or family members who expressed understanding and agreement. All questions were answered. Thank you for involving us in the care of your patient. Please call with any questions. History of Present Illness History of present illness: Mr. Foreman is a 83 year old male All Systems Review: The remainder of the systems were reviewed and are negative Physical Examination Vital Signs, Last 4 Hours Temp Pulse Resp BP Pulse Ox 04/28/18 15:55 98.1 F 107 16 121/69 93 Results 04/28/18 00:41 04/28/18 00:41 Lab Results 04/28/18 04/28/18 04/28/18 00:41 00:41 00:41 WBC 7.0 Hgb 9.0 L Hct 28.4 L Plt Count 255 Sodium 135 L Potassium 3.6 Chloride 100 Carbon Dioxide 28 BUN 15 Creatinine 0.77 Glucose 107 H Calcium 8.4 L Magnesium 1.5 L Troponin I 0.08 H* B-Natriuretic Peptide 04/28/18 04/28/18 00:41 06:12 WBC Hgb Hct Plt Count Sodium Potassium Chloride Carbon Dioxide BUN Creatinine Glucose Calcium Magnesium Troponin I 0.08 H* B-Natriuretic Peptide 472 H
[2018-04-28] MEDS: MethylPREDNISolone 40 MG/ML VIAL IVP SCH (15:19)
[2018-04-28] MEDS: Diltiazem CD (24hr) 300 MG CAPSULE PO SCH (15:19)
[2018-04-28 17:20] LABS: Bilirubin,Urine Small (Negative); Blood,Urine Negative (Negative); Clarity,Urine Clear (Clear); Color,Urine Dark Yellow (Yellow); Glucose,Urine (UA) Normal (Normal); Ketones,Urine Trace mg/dL (Negative); Leukocyte Esterase,Urine Negative (Negative); Nitrite,Urine Negative (Negative); Protein,Urine 30 mg/dL (Neg-Trace); Specific Gravity,Urine 1.029 (1.010-1.025); Urobilinogen,Urine Normal (Normal)
[2018-04-28 17:21] LABS: Bacteria,Urine None Seen per hpf (None-Few); Hyaline Casts,Urine None Seen per lpf (None-Few); Squamous Epithelial Cell,Urine Few per lpf (None-Few); WBC,Urine 0-3 per hpf (0-3)
--- NOTE | 2018-04-28 17:45 | Electrocardiograph Report ---
[address] [address] Test Date: 2018-04-28 Pat Name: Pablo Current Department: 113 Room: 3B Gender: Traffic Coordinator: : 1935 Requested By: Emilia Thomas Order Number: [id number] Reading MD: Teddy Mcneil Measurements Intervals [place] Rate: 98 P: [place]: 0 QRS: 1 QRSD: 101 T: 33 QT: 325 QTc: 380 Interpretive Statements ATRIAL FIBRILLATION LOW QRS VOLTAGE Electronically Signed On 04-28-2018 17:43:41 EDT by Teddy Mcneil
[2018-04-29] MEDS: MethylPREDNISolone 40 MG/ML VIAL IVP SCH ×4 (00:18→23:45)
[2018-04-29 06:28] LABS: Hematocrit 30.3 % (37.5-50.1); Hemoglobin 9.7 g/dL (12.9-16.9); Immature Granulocytes % 0.3 % (0-4); Lymphocytes # 1.6 K/mcL (0.6-4.6); Lymphocytes % 24.1 %; Mean Corpuscular Hemoglobin 23.7 pg (28.0-33.3); Mean Corpuscular Volume 73.9 fL (83.0-100.0); Mean Platelet Volume 9.1 fL (9.4-12.4); Monocytes # 0.1 K/mcL (0.0-1.3); Monocytes % 1.3 %; Platelet Count 242 K/mcL (140-400); Red Cell Distribution Width 16.9 % (11.5-14.5); Segmented Neutrophils % 74.3 %
[2018-04-29 06:49] LABS: BUN/Creatinine Ratio 26 (6-26); Blood Urea Nitrogen 20 mg/dL (8-23); Calcium 8.7 mg/dL (8.6-10.3); Carbon Dioxide 28 mEq/L (23-29); Chloride 101 mEq/L (98-107); Glucose 156 mg/dL (70-105); Osmolality,Calculated 286 (280-300); Sodium 135 mEq/L (136-145); eGFR For African Americans > 60 (> 60); eGFR For Non-African Americans > 60 (> 60)
[2018-04-29] MEDS: levoFLOXacin 500 MG TABLET PO SCH (08:04)
[2018-04-29] MEDS: Diltiazem CD (24hr) 300 MG CAPSULE PO SCH (08:05)
[2018-04-29] MEDS: Budesonide/Formoterol 160/4.5 MDI IH SCH ×2 (10:39→21:55)
--- NOTE | 2018-04-29 13:58 | Cardiology Progress Note ---
Date of Encounter: 04/29/18 Time of Encounter: 13:56 Assessment and Plan (1) Elevated troponin I level Current Visit: Yes Status: Acute Mild adynamic troponin elevation at 0.07, 0.08, 0.08. H/o CAD by CT scan. No history of LHC. EKG shows rate controlled atrial fibrillation with no acute ST/ T wave changes. C/o SOB on exertion in the setting of known emphysema and developing LLl infiltrate. Pulmonary following. TTE completed and showed LVEF 55%. No WMA. Indeterminate diastolic function. Normal right ventricular structure and function. Mild mitral regurgitation. Mild tricuspid regurgitation.Moderate pulmonary hypertension.Estimated RVSP is 48 mmHg. BNP noted to be elevated at 472. Do not suspect CHF. Euvolemic on exam. Likely demand ischemia in the setting of hypoxia and emphysema. He is not a candidate for ischemic evaluation in the setting of hemoptysis. Continue treatment of lung disease and hemoptysis. Continue statin and add asa if okay from hemoptysis standpoint. Cardiology will sign off. Call with questions. (2) Atrial fibrillation, chronic Current Visit: Yes Status: Chronic H/o chronic afib. Avg HR 89 over 24 hours. Cardizem increased for better HR control. Tolerating well. CHDAS VASc=4. Agree with holdling xarelto for hemoptysis. Add asa if okay from pulmonology standpoint. Increased risk of CVA discussed and family voiced understanding. Noted CT head negative for acute or old CVA. Discussion w patient/family: The assessment and plan as outlined above was discussed with the patient and/or family members who expressed understanding and agreement. All questions were answered. Thank you for involving us in the care of your patient. Please call with any questions. Subjective Principal diagnosis: 1356 Interval history: Current states he feels better today. He is awaiting brochoscopy. Denies recurrent hemoptysis. Objective Vital Signs, Last 4 Hours Temp Pulse BP Pulse Ox 04/29/18 11:39 97.6 F 81 108/50 96 General: Conversant, No Apparent Distress HEENT: Atraumatic, Normocephaly, Mucus Membranes Moist Neck: No JVD, Normal carotid pulses Cardiac: Other (Irregularly irregular) Lungs: Other (scattered expiratory wheezes noted. ) Neuro: Alert and responsive, No focal deficits noted Abdomen: Soft, Non-Tender Skin: No rashes noted on visualized skin Musculoskeletal: No Chest Wall Tenderness Extremities: No Clubbing, No Cyanosis, No Edema, Normal Pulses Results 04/29/18 05:44 04/29/18 05:44 Lab Results 04/29/18 04/29/18 05:44 05:44 WBC 6.7 Hgb 9.7 L Hct 30.3 L Plt Count 242 Sodium 135 L Potassium 4.0 Chloride 101 Carbon Dioxide 28 BUN 20 Creatinine 0.76 Glucose 156 H Calcium 8.7 Magnesium 2.0 - Imaging and Cardiology Echo: report reviewed - VTE Documentation of Mechanical Device: Intermittent pneumatic compression device Consult Discharge Plan - Plan Referrals: Ambrosio Burdick DO [Primary Care Provider] - 05/06/18 11:30 am
[2018-04-29] MEDS ORDERED: Lidocaine Viscous Oral Soln 15 ML SOLUTION ONE (14:04)
[2018-04-29] MEDS ORDERED: *HR* Midazolam HCl 5 MG/5 ML VIAL IVP ONE (15:12)
[2018-04-29] MEDS ORDERED: *HR* FentaNYL (PF) 100 MCG/2 ML VIAL ONE (15:13)
[2018-04-29] MEDS ORDERED: *HR* FentaNYL (PF) 100 MCG/2 ML VIAL IVP ONE (15:29)
[2018-04-29] MEDS ORDERED: Tetracaine/Benzocaine/Butamben 200MG/SPRAY (100SPY/BOT) MM ONE (15:29)
[2018-04-29] MEDS ORDERED: *HR* Midazolam HCl 2 MG/2 ML VIAL IVP ONE (15:29)
[2018-04-29] MEDS ORDERED: Lidocaine Viscous Oral Soln 15 ML SOLUTION MM ONE (15:29)
--- NOTE | 2018-04-29 16:53 | Internal Med Progress Note ---
Date of Encounter: 04/29/18 Time of Encounter: 13:00 - Assessment and plan (1) Hemoptysis Current Visit: Yes Status: Acute Assessment and plan: Patient experienced one episode of small hemoptysis may be related to Xarelto use Pulmonology did see the patient showed evidence of emphysema Bronchoscopy today awaiting results Cardiology consulted and appreciate recommendation Holding Xarelto for now (2) PAD (peripheral artery disease) Current Visit: No Status: Chronic Assessment and plan: Continue home medications. (3) Atrial fibrillation, chronic Current Visit: Yes Status: Chronic Assessment and plan: Patient was seen by cardiology continue with Cardizem we will continue to hold Xarelto due to hemoptysis (4) Elevated troponin I level Current Visit: Yes Status: Acute Assessment and plan: Patient denies chest pain. - Continuous cardiac monitoring - Troponins negative 3 Cardiology consulted- most likely demand ischemia continue with aspirin and statin (5) Exertional dyspnea Current Visit: No Status: Acute Assessment and plan: Etiology is undetermined. Suspect related to COPD appears to have development of left lower infiltrate as well as anemia could be a factor Oxygen as needed continue with antibiotics and steroids (6) Anemia Current Visit: Yes Status: Acute Assessment and plan: No active bleeding at this time Continue with ferrous sulfate Closely monitor H&H. H/h stable at this time Qualifiers: Anemia type: iron deficiency Iron deficiency anemia type: unspecified iron deficiency Qualified Code(s): D50.9 - Iron deficiency anemia, unspecified (7) Elevated TSH Current Visit: Yes Status: Acute Assessment and plan: Mild elevated TSH. Probably subclinical hypothyroidism, may need close follow- up as outpatient. (8) COPD (chronic obstructive pulmonary disease) Current Visit: Yes Status: Acute Assessment and plan: We will continue with Solu-Medrol 40 IV every 8 Oxygen as needed Levaquin 500 mg by mouth daily Duo nebs when necessary Continue with Symbicort Qualifiers: COPD type: emphysema Emphysema type: unspecified Qualified Code(s): J43.9 - Emphysema, unspecified (9) DVT prophylaxis Current Visit: Yes Status: Acute Assessment and plan: SCD due to hemoptysis (10) Dysphagia Current Visit: Yes Status: Acute Assessment and plan: reports patient has been having difficulty swallowing stating that he is been coughing while eating. Patient did have radiation treatment to his neck concern for possible strictures also family reports the patient has been behaving strangely after concerned about possible stroke. modified barium swallow-silent aspiration with thin liquids speech therapy recommending nectar thickened liquids CT of head with no acute intracranial abnormalities Qualifiers: Dysphagia type: unspecified Qualified Code(s): R13.10 - Dysphagia, unspecified (11) Hypomagnesemia Current Visit: Yes Status: Acute Assessment and plan: Resolved continue to monitor. - Time Spent With Patient Total time spent is greater than 50% in coordination of care (as documented) at patient's floor/unit and/or counseling patient: - Subjective Interval history: Patient was seen and examined at bedside family is at bedside. Patient is sitting up in a chair he is alert and appropriate following simple commands does not appear to be in any respiratory distress and denies any chest pain or shortness of breath. He is awaiting to undergo bronchoscopy. Denies any pain or discomfort at this time - Constitutional Vitals: Temp Pulse Resp BP Pulse Ox 97.6 F 63 14 98/63 96 04/29/18 14:14 04/29/18 15:55 04/29/18 15:55 04/29/18 15:55 04/29/18 15:55 General appearance: Present: A&O X 3, no acute distress, answers questions appropriately - Head Head exam: Present: atraumatic, normocephalic - Eye Eye exam: Present: PERRL, conjuntiva pink, sclera anicteric Pupils: Present: PERRL - Neck Neck exam general surgery: Present: supple, trachea midline. Absent: lymphadenopathy - Respiratory Respiratory exam: Present: CTAB. Absent: accessory muscle use, rales, rhonchi, wheezes - Cardiovascular Cardiovascular exam: Present: RRR, +S1, +S2. Absent: diastolic murmur, gallop, rubs, systolic murmur - GI/Abdominal GI/Abdominal exam: Present: normal bowel sounds, soft, no peritoneal signs. Absent: distended, tenderness - Extremities Exam Extremities exam: Present: warm, radial pulses palpable and symmetrical. Absent : calf tenderness, cyanotic, pedal edema - Neurological Exam Neurological exam: Present: CN II-XII intact, oriented X3, no focal deficits. Absent: pronater drift, facial droop, speech deficit - Skin Skin exam: Present: dry, intact Internal Medicine: Result - Labs CBC & Chem 7: 04/29/18 05:44 04/29/18 05:44 Labs: Short CBC 04/29/18 Range/Units 05:44 WBC 6.7 (4.3-11.1) K/mcL Hgb 9.7 L (12.9-16.9) g/dL Hct 30.3 L (37.5-50.1) % Plt Count 242 (140-400) K/mcL Neutrophils # 5.0 (1.6-8.9) K/mcL BMP 04/29/18 05:44 Sodium 135 L Potassium 4.0 Chloride 101 Carbon Dioxide 28 BUN 20 Creatinine 0.76 Glucose 156 H Calcium 8.7 Urine 04/28/18 Range/Units 16:40 Urine Color Dark Yellow (Yellow) Urine Clarity Clear (Clear) Urine pH 6.0 (5.0-8.0) pH Units Ur Specific [place] 1.029 H (1.010-1.025) Urine Protein 30 H (Neg-Trace) mg/dL Urine Glucose (UA) Normal (Normal) mg/dL - Impressions Impressions Head CT 04/28/18 16:00 IMPRESSION: No acute intracranial abnormality. D/ / Toro Salazar MD / Toro Salazar MD Interpreting Provider: Toro Salazar MD - VTE Documentation of Mechanical Device: Intermittent pneumatic compression device Consult Discharge Plan - Plan Referrals: Ambrosio Burdick DO [Primary Care Provider] - 05/06/18 11:30 am
--- NOTE | 2018-04-29 17:07 | Oncology Inp Consult Note ---
Date of Encounter: 04/28/18 Time of Encounter: 12:00 Assessment and Plan (1) Hemoptysis Status: Acute Assessment and plan: -Patient with stage I diffuse large B-cell lymphoma, S/P 05/23 and RT completed in late . PET was in 11/24 results showed no recurrence, completely negative. Patient had borderline enlarged mediastinal lymph nodes since February 2018 which otherwise is unchanged and recent imaging. The appears patient has left lung pneumonia, will need a bronchoscopy--underwent one and reports reviewed Anticoagulation has been held due to ongoing bleeding. Resume when safe per cardiology. Anemia appears to be chronic, microcytic related to infectious inflammation or etiology, ferritin is over thousand. Family had concerns about his shortness of breath likely related to emphysema, possible development of pneumonia. Patient seen bedside with family and Elicia Cruz CNP. Family stated understanding of above plan of care. - Data of Consult Requesting Physician: Chase Rice MD Primary Care Provider: Ambrosio Burdick DO - Consult Narrative Reason for consult: hemoptysis History of present illness: This is a 82-year-old male with medical history significant for atrial fibrillation, was on Xarelto; history of prostatic hypertrophy; hyperlipidemia; gastroesophageal reflux disease; impotence; stomach ulcer; actinic keratosis, who had right neck swelling. Patient underwent excisional biopsy, which was consistent with diffuse large B-cell lymphoma, Ki-67 25%, immunostains positive for CD20, BCL2, and BCL6. Immunostains were negative for CD3, CD5, CD10, and cycling D1. MUM1 was negative. His PET scan was negative elsewhere except for right subclavicular lymph node, he underwent RCHOP chemotherapy and then radiation therapy involved field rt neck--06/23 PET scan from 11/21/2015 was negative. No evidence of disease recurrence since then. He had shortness of breath related to his emphysema, also noted some weight loss, CT scan of the chest in February 2018, showed a mild increase in subcarinal pretracheal lymphadenopathy minimal upper abdominal lymphadenopathy. Patient to had complained of hemoptysis and was advised to obtain imaging/ hospitalization. Pulm is consulted and patient is scheduled for bronch Family reports some coughing, poor appetite and weakness for the last 2 weeks or so. Patient was gaining weight with stable shortness of breath prior to that since February 2018. Past Med Surg Social Fam HX - Past Medical History Medical history: atrial fibrillation, cancer, coronary artery disease, DVT, GERD , hyperlipidemia, hypertension, malignancy Additional medical history: iliac aneurysm repair Psychiatric history: no psych history - Past Surgical History Surgical History: other Additional surgical history: R leg Iliac Aneurysm Repair, left ear drum repair - Social History Smoking Status: Former smoker Smokeless Tobacco Status: No Alcohol use: none Drug use: none - Family History Mother Living Status: Hx Family Cardiac Disorders: Yes Father Living Status: Hx Family Cardiac Disorders: Yes Medications and Allergies Rivaroxaban [Xarelto] 20 mg PO DAILY 07/30/15 [History] Simvastatin [Zocor] 10 mg PO QPM 02/14/16 [History] Diltiazem CD (24hr) [Cardizem CD] 240 mg PO DAILY 01/26/17 [History] Albuterol Neb [AccuNeb] 0.63 mg IH PRN PRN 04/27/18 [History] Albuterol Sulfate [Proair Hfa] 2 puff IH Q6H 04/27/18 [History] Budesonide/Formoterol 160/4.5 [Symbicort 160/4.5] 1 puff IH BIDR 04/27/18 [ History] Cholecalciferol (Vitamin D3) [Vitamin D] 2,000 unit PO DAILY 04/27/18 [History] Ferrous Sulfate [High Potency Iron] 65 mg PO DAILY 04/27/18 [History] Omeprazole [PriLOSEC] 40 mg PO DAILY 04/28/18 [History] 3 Allergy/AdvReac Type Severity Reaction Status Date / Time No Known Allergies Allergy Verified 04/28/18 07:45 Review of systems: as in HPI Oncology - Exam - Constitutional Vitals: Temp Pulse Resp BP Pulse Ox 97.6 F 63 14 98/63 96 04/29/18 14:14 04/29/18 15:55 04/29/18 15:55 04/29/18 15:55 04/29/18 15:55 Exam: General: Alert and oriented Mental Status: Affect appropriate for circumstances HEENT: Sclerae anicteric. No mucositis or thrush. Skin: No rashes or petechiae. Lymph nodes: No cervical, supraclavicular adenopathy Lungs: [place] ae anteriorly Cardiovascular: Irregular rate and rhythm. No gallops, murmurs, or rubs. Abdomen: Soft, nontender; no organomegaly Extremities: No edema. No calf swelling or tenderness Neurologic: Alert, cranial nerves II-XII intact; no focal weakness Oncology - Results Labs: 3 04/29/18 04/29/18 04/28/18 05:44 05:44 16:40 WBC 6.7 RBC 4.10 L Hgb 9.7 L Hct 30.3 L MCV 73.9 L MCH 23.7 L MCHC 32.0 RDW 16.9 H Plt Count 242 MPV 9.1 L Immature Gran % 0.3 Seg Neutrophils % 74.3 Lymphocytes % 24.1 Monocytes % 1.3 Eosinophils % 0.0 Basophils % 0.0 Neutrophils # 5.0 Lymphocytes # 1.6 Monocytes # 0.1 Eosinophils # 0.0 Basophils # 0.0 Sodium 135 L Potassium 4.0 Chloride 101 Carbon Dioxide 28 BUN 20 Creatinine 0.76 Est GFR ( Amer) > 60 Est GFR (Non-Af Amer) > 60 BUN/Creatinine Ratio 26 Glucose 156 H Calculated Osmolality 286 Calcium 8.7 Magnesium 2.0 Iron % Saturation Transferrin Ferritin Troponin I B-Natriuretic Peptide Vitamin B12 Folate Free T4 Thyroxine (T4) Free T3 Total T3 Urine Color Dark Yellow Urine Clarity Clear Urine pH 6.0 Ur Specific [place] 1.029 H Urine Protein 30 H Urine Glucose (UA) Normal Urine Ketones Trace H Urine Blood Negative Urine Nitrite Negative Urine Bilirubin Small H Urine Urobilinogen Normal Ur Leukocyte Esterase Negative Urine Microscopic RBC 3-5 H Urine Microscopic WBC 0-3 Ur Squamous Epith Cells Few Urine Bacteria None Seen Hyaline Casts None Seen 3 04/28/18 04/28/18 04/28/18 06:12 00:41 00:41 WBC RBC Hgb Hct MCV MCH MCHC RDW Plt Count MPV Immature Gran % Seg Neutrophils % Lymphocytes % Monocytes % Eosinophils % Basophils % Neutrophils # Lymphocytes # Monocytes # Eosinophils # Basophils # Sodium Potassium Chloride Carbon Dioxide BUN Creatinine Est GFR ( Amer) Est GFR (Non-Af Amer) BUN/Creatinine Ratio Glucose Calculated Osmolality Calcium Magnesium Iron 23 L % Saturation 14 L Transferrin 120 L Ferritin > 1500 H Troponin I 0.08 H* B-Natriuretic Peptide Vitamin B12 714 Folate 13.9 Free T4 Thyroxine (T4) Free T3 Total T3 Urine Color Urine Clarity Urine pH Ur Specific [place] Urine Protein Urine Glucose (UA) Urine Ketones Urine Blood Urine Nitrite Urine Bilirubin Urine Urobilinogen Ur Leukocyte Esterase Urine Microscopic RBC Urine Microscopic WBC Ur Squamous Epith Cells Urine Bacteria Hyaline Casts 3 04/28/18 04/28/18 04/28/18 00:41 00:41 00:41 WBC 7.0 RBC 3.85 L Hgb 9.0 L Hct 28.4 L MCV 73.8 L MCH 23.4 L MCHC 31.7 RDW 16.9 H Plt Count 255 MPV 8.8 L Immature Gran % 0.3 Seg Neutrophils % 54.7 Lymphocytes % 37.0 Monocytes % 7.3 Eosinophils % 0.4 Basophils % 0.3 Neutrophils # 3.8 Lymphocytes # 2.6 Monocytes # 0.5 Eosinophils # 0.0 Basophils # 0.0 Sodium 135 L Potassium 3.6 Chloride 100 Carbon Dioxide 28 BUN 15 Creatinine 0.77 Est GFR ( Amer) > 60 Est GFR (Non-Af Amer) > 60 BUN/Creatinine Ratio 19 Glucose 107 H Calculated Osmolality 281 Calcium 8.4 L Magnesium 1.5 L Iron % Saturation Transferrin Ferritin Troponin I B-Natriuretic Peptide 472 H Vitamin B12 Folate Free T4 1.16 Thyroxine (T4) 9.18 Free T3 2.49 L Total T3 0.42 L Urine Color Urine Clarity Urine pH Ur Specific [place] Urine Protein Urine Glucose (UA) Urine Ketones Urine Blood Urine Nitrite Urine Bilirubin Urine Urobilinogen Ur Leukocyte Esterase Urine Microscopic RBC Urine Microscopic WBC Ur Squamous Epith Cells Urine Bacteria Hyaline Casts 3 04/28/18 00:41 WBC RBC Hgb Hct MCV MCH MCHC RDW Plt Count MPV Immature Gran % Seg Neutrophils % Lymphocytes % Monocytes % Eosinophils % Basophils % Neutrophils # Lymphocytes # Monocytes # Eosinophils # Basophils # Sodium Potassium Chloride Carbon Dioxide BUN Creatinine Est GFR ( Amer) Est GFR (Non-Af Amer) BUN/Creatinine Ratio Glucose Calculated Osmolality Calcium Magnesium Iron % Saturation Transferrin Ferritin Troponin I 0.08 H* B-Natriuretic Peptide Vitamin B12 Folate Free T4 Thyroxine (T4) Free T3 Total T3 Urine Color Urine Clarity Urine pH Ur Specific [place] Urine Protein Urine Glucose (UA) Urine Ketones Urine Blood Urine Nitrite Urine Bilirubin Urine Urobilinogen Ur Leukocyte Esterase Urine Microscopic RBC Urine Microscopic WBC Ur Squamous Epith Cells Urine Bacteria Hyaline Casts Consult Discharge Plan - Plan Referrals: Ambrosio Burdick DO [Primary Care Provider] - 05/06/18 11:30 am
--- NOTE | 2018-04-29 20:29 | Pre-Sedation Evaluation ---
Pre-sedation evaluation - Pre-sedation checklist Date of procedure: 04/29/18 Procedure: Bronchoscopy Recent Vitals: Last Vital Signs Temp 97.5 F L 04/29/18 19:32 Pulse 80 04/29/18 19:32 Resp 16 04/29/18 19:32 BP 107/62 04/29/18 19:32 Pulse Ox 98 04/29/18 19:32 H&P (including ROS) documented in medical record: Yes Previous reaction to sedatives/anesthetics: Yes; explain in comment Dietary Status: NPO after Midnight Dentition: No loose teeth or bridges Possible difficult airway: No ASA Classification *see protocol: CLASS III-Severe systemic disease Plan of Care: Pt appropriate candidate for procedure/moderate/conscious sedation , Risks/benefits of procedure/sedation discussed w/ patient/family
[2018-04-29] MEDS: D5% in 0.45% NACL 1,000 ML IVC SCH (23:59)
[2018-04-30 04:52] LABS: Basophils % 0.1 %; Hematocrit 28.9 % (37.5-50.1); Hemoglobin 9.1 g/dL (12.9-16.9); Immature Granulocytes % 0.6 % (0-4); Lymphocytes # 0.9 K/mcL (0.6-4.6); Lymphocytes % 6.3 %; Mean Corpuscular HGB Conc 31.5 g/dL (31.6-35.5); Mean Corpuscular Hemoglobin 23.2 pg (28.0-33.3); Mean Corpuscular Volume 73.5 fL (83.0-100.0); Mean Platelet Volume 8.8 fL (9.4-12.4); Monocytes # 0.4 K/mcL (0.0-1.3); Monocytes % 2.5 %; Platelet Count 242 K/mcL (140-400); Red Blood Count 3.93 M/mcL (4.19-5.50); Red Cell Distribution Width 17.1 % (11.5-14.5); Segmented Neutrophils % 90.5 %
[2018-04-30 05:08] LABS: BUN/Creatinine Ratio 33 (6-26); Blood Urea Nitrogen 30 mg/dL (8-23); Calcium 8.9 mg/dL (8.6-10.3); Carbon Dioxide 26 mEq/L (23-29); Chloride 101 mEq/L (98-107); Glucose 158 mg/dL (70-105); Neutrophils # 12.7 K/mcL (1.6-8.9); Osmolality,Calculated 289 (280-300); Potassium 3.8 mEq/L (3.5-5.1); Sodium 135 mEq/L (136-145); eGFR For African Americans > 60 (> 60); eGFR For Non-African Americans > 60 (> 60)
[2018-04-30] MEDS: Budesonide/Formoterol 160/4.5 MDI IH SCH ×2 (07:54→20:15)
[2018-04-30] MEDS ORDERED: Aspirin 81 MG TAB.CHEW PO SCH (09:00)
[2018-04-30] MEDS: MethylPREDNISolone 40 MG/ML VIAL IVP SCH ×2 (10:36→17:11)
[2018-04-30] MEDS: levoFLOXacin 500 MG TABLET PO SCH (10:36)
[2018-04-30] MEDS: Diltiazem CD (24hr) 300 MG CAPSULE PO SCH (10:36)
[2018-04-30 11:16] LABS: Source of Body Fluid RML BAL
[2018-04-30 11:54] LABS: Appearance of Body Fluid Slightly Hazy (Clear); Volume of Body Fluid 15 mL
--- NOTE | 2018-04-30 13:06 | Internal Med Progress Note ---
Date of Encounter: 04/30/18 Time of Encounter: 13:03 - Assessment and plan (1) Hemoptysis Current Visit: Yes Status: Acute Assessment and plan: Originally presented after experiencing one episode of small hemoptysis suspect related to Xarelto Pulmonology did see the patient he underwent bronchoscopy-erythremia was present in the right lower lobe- Telangiectasis found in the right middle lobe Xarelto was held-spoke with Dr. Emi tineo to resume CT shows emphysema with bilateral lower lobe atelectasis and potential developing infiltrate left lower lobe (2) PAD (peripheral artery disease) Current Visit: No Status: Chronic Assessment and plan: Continue home medications. (3) Atrial fibrillation, chronic Current Visit: Yes Status: Chronic Assessment and plan: Patient was seen by cardiology continue with Cardizem we will resume Xarelto (4) Elevated troponin I level Current Visit: Yes Status: Acute Assessment and plan: Patient denies chest pain. - Continuous cardiac monitoring - Troponins negative 3 Cardiology consulted- most likely demand ischemia continue with aspirin and statin (5) Exertional dyspnea Current Visit: No Status: Acute Assessment and plan: This is multifactoral including COPD development of left lower infiltrate as well as anemia we will continue with oxygen and antibiotics and steroids Etiology is undetermined. Suspect related to COPD appears to have development of left lower infiltrate as well as anemia could be a factor Oxygen as needed continue with antibiotics and steroids (6) Anemia Current Visit: Yes Status: Acute Assessment and plan: Hemoglobin stable No active bleeding at this time Continue with ferrous sulfate Closely monitor H&H. Qualifiers: Anemia type: iron deficiency Iron deficiency anemia type: unspecified iron deficiency Qualified Code(s): D50.9 - Iron deficiency anemia, unspecified (7) Elevated TSH Current Visit: Yes Status: Acute Assessment and plan: Mild elevated TSH. Probably subclinical hypothyroidism, may need close follow- up as outpatient. (8) COPD (chronic obstructive pulmonary disease) Current Visit: Yes Status: Acute Assessment and plan: Solu-Medrol 40 IV will convert to oral Oxygen as needed Continue with Levaquin 500 by mouth daily Duo nebs nebs as needed Continue with Symbicort No wheezing at this time appears to be stable Qualifiers: COPD type: emphysema Emphysema type: unspecified Qualified Code(s): J43.9 - Emphysema, unspecified (9) DVT prophylaxis Current Visit: Yes Status: Acute Assessment and plan: SCD We will initiate back on Xarelto (10) Dysphagia Current Visit: Yes Status: Acute Assessment and plan: Patient underwent modified barium swallow silent aspiration with thin liquids speech therapy recommending nectar thickened liquids Underwent bronchoscopy yesterday -nursing reported no Reflex. Was evaluated by speech therapy informed that gag was decreased prior to procedure. Patient did eat and tolerate food without difficulty Qualifiers: Dysphagia type: unspecified Qualified Code(s): R13.10 - Dysphagia, unspecified (11) Hypomagnesemia Current Visit: Yes Status: Acute Assessment and plan: Resolved continue to monitor. - Time Spent With Patient Total time spent is greater than 50% in coordination of care (as documented) at patient's floor/unit and/or counseling patient: - Subjective Interval history: Notified per nursing staff patient did not have return of gag reflex after endoscopy yesterday. He was made nothing by mouth overnight and was given IV fluids. Today continues to have decreased gag reflex -spoke with Dr. Middleton who states that the medications used are very short-lived and he should have return of gag reflex advised to have speech therapy see patient. Patient was bilaterally speech therapy who advised patient had a decreased gag prior and to go ahead and attempt to the patient. Patient did consume improving without any difficulty we will resume his diet with nectar thickened liquids. Presently patient is sitting up in chair bedside-he does have some discomfort in his throat however he is able to clear secretions and maintain airway. - Constitutional Vitals: Temp Pulse Resp BP Pulse Ox 97.4 F L 18 62 107/65 100 04/30/18 10:51 04/30/18 10:51 04/30/18 10:51 04/30/18 10:51 04/30/18 10:51 General appearance: Present: A&O X 3, no acute distress, answers questions appropriately - Head Head exam: Present: atraumatic, normocephalic - Eye Eye exam: Present: PERRL, conjuntiva pink, sclera anicteric Pupils: Present: PERRL - Neck Neck exam general surgery: Present: supple, trachea midline. Absent: lymphadenopathy - Respiratory Respiratory exam: Present: CTAB. Absent: accessory muscle use, rales, rhonchi, wheezes - Cardiovascular Cardiovascular exam: Present: RRR, +S1, +S2. Absent: diastolic murmur, gallop, rubs, systolic murmur - GI/Abdominal GI/Abdominal exam: Present: normal bowel sounds, soft, no peritoneal signs. Absent: distended, tenderness - Extremities Exam Extremities exam: Present: warm, radial pulses palpable and symmetrical. Absent : calf tenderness, cyanotic, pedal edema - Neurological Exam Neurological exam: Present: CN II-XII intact, oriented X3, no focal deficits. Absent: pronater drift, facial droop, speech deficit - Skin Skin exam: Present: dry, intact Internal Medicine: Result - Labs CBC & Chem 7: 04/30/18 04:38 04/30/18 04:38 Labs: Short CBC 04/30/18 Range/Units 04:38 WBC 14.0 H D (4.3-11.1) K/mcL Hgb 9.1 L (12.9-16.9) g/dL Hct 28.9 L (37.5-50.1) % Plt Count 242 (140-400) K/mcL Neutrophils # 12.7 H (1.6-8.9) K/mcL BMP 04/30/18 04:38 Sodium 135 L Potassium 3.8 Chloride 101 Carbon Dioxide 26 BUN 30 H Creatinine 0.91 Glucose 158 H Calcium 8.9 - VTE Documentation of Mechanical Device: Intermittent pneumatic compression device Consult Discharge Plan - Plan Referrals: Ambrosio Burdick DO [Primary Care Provider] - 05/06/18 11:30 am
[2018-05-01] MEDS: D5% in 0.45% NACL 1,000 ML IVC SCH (01:25)
[2018-05-01 04:48] LABS: Hematocrit 27.4 % (37.5-50.1); Hemoglobin 8.6 g/dL (12.9-16.9); Immature Granulocytes % 0.3 % (0-4); Lymphocytes # 0.8 K/mcL (0.6-4.6); Mean Corpuscular HGB Conc 31.4 g/dL (31.6-35.5); Mean Corpuscular Hemoglobin 22.9 pg (28.0-33.3); Mean Corpuscular Volume 72.9 fL (83.0-100.0); Mean Platelet Volume 9.1 fL (9.4-12.4); Monocytes # 0.3 K/mcL (0.0-1.3); Monocytes % 2.5 %; Neutrophils # 10.5 K/mcL (1.6-8.9); Platelet Count 217 K/mcL (140-400); Red Blood Count 3.76 M/mcL (4.19-5.50); Red Cell Distribution Width 17.1 % (11.5-14.5); Segmented Neutrophils % 90.2 %
[2018-05-01] MEDS: MethylPREDNISolone 40 MG/ML VIAL IVP SCH (05:03)
[2018-05-01 05:05] LABS: BUN/Creatinine Ratio 35 (6-26); Blood Urea Nitrogen 30 mg/dL (8-23); Calcium 8.6 mg/dL (8.6-10.3); Carbon Dioxide 22 mEq/L (23-29); Chloride 104 mEq/L (98-107); Glucose 152 mg/dL (70-105); Magnesium 1.9 mg/dL (1.6-2.6); Osmolality,Calculated 289 (280-300); Potassium 3.8 mEq/L (3.5-5.1); Sodium 135 mEq/L (136-145); eGFR For African Americans > 60 (> 60); eGFR For Non-African Americans > 60 (> 60)
[2018-05-01] MEDS: Budesonide/Formoterol 160/4.5 MDI IH SCH (07:25)
[2018-05-01] MEDS: levoFLOXacin 500 MG TABLET PO SCH (08:37)
[2018-05-01] MEDS: Diltiazem CD (24hr) 300 MG CAPSULE PO SCH (08:37)
[2018-05-01] MEDS ORDERED: NON-FORMULARY MEDICATION 1 EACH EACH (Omeprazole [Prilosec] 40 MG) PO SCH (09:00)
[2018-05-01] MEDS ORDERED: *HR* Rivaroxaban 10 MG TABLET PO SCH (09:00)
[2018-05-01 12:24] VITALS: BP 102/60
[2018-05-01 12:27] LABS: Hemoglobin 8.7 g/dL (12.9-16.9)
--- NOTE | 2018-05-01 13:22 | Discharge Summary ---
- NOTES TO OUTPATIENT PROVIDER Notes to Outpatient Provider: Patient had an episode of hemoptysis was seen by pulmonology underwent a bronchoscopy-no active bleeding awaiting BAL results. He was treated for left lower lobe pneumonia. Also experiencing dysphagia-soft diet with nectar thickened liquids Orders not resulted at time of discharge: Pending orders 04/29/18 15:30 Culture,Respiratory [RM] Routine Gram Stain [RM] Routine 04/29/18 15:38 Cytology [PTH] Routine Date of Encounter: 05/01/18 Time of Encounter: 13:19 - Discharge Diagnosis (1) Hemoptysis Priority: Primary Status: Acute (2) PAD (peripheral artery disease) Priority: Secondary Status: Chronic (3) Atrial fibrillation, chronic Priority: Secondary Status: Chronic (4) Elevated troponin I level Priority: Secondary Status: Acute (5) Exertional dyspnea Priority: Secondary Status: Acute (6) Anemia Priority: Secondary Status: Acute Qualifiers: Anemia type: iron deficiency Iron deficiency anemia type: unspecified iron deficiency Qualified Code(s): D50.9 - Iron deficiency anemia, unspecified (7) Elevated TSH Priority: Secondary Status: Acute (8) COPD (chronic obstructive pulmonary disease) Priority: Secondary Status: Acute Qualifiers: COPD type: emphysema Emphysema type: unspecified Qualified Code(s): J43.9 - Emphysema, unspecified (9) Dysphagia Priority: Secondary Status: Acute Qualifiers: Dysphagia type: unspecified Qualified Code(s): R13.10 - Dysphagia, unspecified (10) Hypomagnesemia Priority: Secondary Status: Acute Hospital course: Mr. Foreman is a 83 year old male past medical history of atrial fibrillation on as well as cell lymphoma coronary artery disease. She GERD hyperlipidemia hypertension and iliac aneurysm repair. Patient originally presented to [place] emergency department with complaints of a episode of hemoptysis describing red dark blood and sputum. He has also been experiencing fatigue and exertional intolerance as well as shortness of breath for the past several weeks. Denies any coffee-ground emesis or hematochezia he does have black stools because he is on iron pills. He has been taking Zaroxolyn due to atrial fibrillation. Lab work did reveal a elevated troponin no chest pain. He was transferred to [facility] for further workup or evaluation. Chest CT shows emphysema with bilateral lower lobe atelectasis and potential developing infiltrate left lower lobe stable indeterminate mediastinal lymph nodes stable upper abdominal mesenteric lymph nodes correlating with patient's clinical history of lymphoma. VQ scan was low probability for PE. did report patient having coughing episodes during eating speech therapy was consulted and modified barium swallow completed which did show aspiration with thin liquids. Patient was placed on nectar thickened liquids pulmonology was consulted patient underwent bronchoscopy which did show erythremia and right middle lobe, Telangiectasias were found in the right middle lobe bronchial alveolar lavage was performed awaiting results. Cardiology did see the patient for elevated troponin suspect related to respiratory symptoms recommended aspirin and resuming anticoagulation if and when able and hemoptysis is improved. No more hemoptysis noted, spoke with pulmonology Dr Emi tineo resume Xarelto. Hemoglobin has been stable 9-8.7. No other active bleeding noted. Oncology did see the patient on consult as well-advised to continue follow-up as outpatient. Patient has resume Xarelto no active bleeding noted at this time hemoglobin has been stable. Patient was seen by PT OT were recommending home health which has been established. Patient will follow-up with primary care provider as well as cardiology since these providers know him best and can adjust medications accordingly. We will have patient check CBC in 2 days to monitor hemoglobin. Advised patient to continue home medications as advised. I did give patient prescription for Levaquin 500 mg by mouth daily for 5 days as well as steroid taper Advised patient to continue with nectar thickened liquids. Patient verbalized understanding he is hemodynamically stable and ready for discharge. Discharge discussed with: patient - Time Spent with Patient Total time spent providing and/or coordinating discharge services: - Discharge Medications Prescriptions: levoFLOXacin [Levaquin] 500 mg PO DAILY #5 tablet predniSONE [PredniSONE] 10 mg PO DAILY #15 tablet Home Medications: Rivaroxaban [Xarelto] 20 mg PO DAILY 07/30/15 [History] Simvastatin [Zocor] 10 mg PO QPM 02/14/16 [History] Diltiazem CD (24hr) [Cardizem CD] 240 mg PO DAILY 01/26/17 [History] Albuterol Neb [AccuNeb] 0.63 mg IH PRN PRN 04/27/18 [History] Albuterol Sulfate [Proair Hfa] 2 puff IH Q6H 04/27/18 [History] Budesonide/Formoterol 160/4.5 [Symbicort 160/4.5] 1 puff IH BIDR 04/27/18 [ History] Cholecalciferol (Vitamin D3) [Vitamin D3] 2,000 unit PO DAILY 04/27/18 [History] Ferrous Sulfate [High Potency Iron] 65 mg PO DAILY 04/27/18 [History] Omeprazole [PriLOSEC] 40 mg PO DAILY 04/28/18 [History] levoFLOXacin [Levaquin] 500 mg PO DAILY #5 tablet 05/01/18 [Rx] predniSONE [PredniSONE] 10 mg PO DAILY #15 tablet 05/01/18 [Rx] Allergies/Adverse Reactions: 3 Allergy/AdvReac Type Severity Reaction Status Date / Time No Known Allergies Allergy Verified 04/28/18 07:45 Date of admission: 04/27/18 21:22 Primary care physician: Ambrosio Burdick DO Consults: 04/28/18 00:08 Consult to Pulmonology [CONS] Routine Consulting Provider: [facility] [place] Reason for Consult: hemoptysis Call Completed: No 04/28/18 07:31 Consult to Remote Sensing Engineer [CONS] Routine Reason for SW Consult: Recent increase in weakness and requiring help with bathing/dressing/ using walker Consult to Speech Therapy [CONS] Routine Comment: Evaluate, develop and implement POC Reason for Consult: Patient reports trouble swallowing at times Call Completed: No 04/28/18 08:45 Consult to Physical Therapy [CONS] Routine Comment: Evaluate, develop and implement POC Reason for Consult: D/C PLANNING. INCREASED WEAKNESS Does patient have active BEDREST order?: No Is patient medically & hemodynamically stable?: Yes 04/28/18 12:31 Consult to Cardiology [CONS] Routine Comment: Consulting Provider: Cardiology [facility] Reason for Consult: elevated troponin Time Notified: 12:32 Call Completed: Yes 04/28/18 15:59 Consult to Oncology [CONS] Routine Consulting Provider: Oncology [facility] [place] Reason for Consult: Lymphoma Time Notified: 16:00 Call Completed: Yes Discharging clinician: Emilia Thomas Anticipated date of discharge: 05/01/18 - Constitutional Vitals: Temp Pulse Resp BP Pulse Ox 97.5 F L 79 17 102/60 96 05/01/18 12:21 05/01/18 12:21 05/01/18 12:21 05/01/18 12:21 05/01/18 12:21 General appearance: Present: A&O X 3, no acute distress, answers questions appropriately - Head Head exam: Present: atraumatic, normocephalic - Eye Eye exam: Present: PERRL, conjuntiva pink, sclera anicteric Pupils: Present: PERRL - Neck Neck exam general surgery: Present: supple, trachea midline. Absent: lymphadenopathy - Respiratory Respiratory exam: Present: CTAB. Absent: accessory muscle use, rales, rhonchi, wheezes - Cardiovascular Cardiovascular exam: Present: RRR, +S1, +S2. Absent: diastolic murmur, gallop, rubs, systolic murmur - GI/Abdominal GI/Abdominal exam: Present: normal bowel sounds, soft, no peritoneal signs. Absent: distended, tenderness - Extremities Exam Extremities exam: Present: warm, radial pulses palpable and symmetrical. Absent : calf tenderness, cyanotic, pedal edema - Neurological Exam Neurological exam: Present: CN II-XII intact, oriented X3, no focal deficits. Absent: pronater drift, facial droop, speech deficit - Skin Skin exam: Present: dry, intact - Patient Status Disposition: Home Health Service Condition: Good Functional capacity at discharge: independent ambulation Overall status at discharge: patient is back to baseline - Ambulatory Orders Ambulatory Orders: Complete Blood Count [HEME] Time Frame: 05/03/18, Facility: [facility], Location: Lab - Discharge Instructions Instructions: Atrial Fibrillation (DC), Chronic Obstructive Pulmonary Disease ( DC), Anemia (GEN) Follow Up With: Ambrosio Burdick DO [Primary Care Provider] - 05/06/18 11:30 am - Diet and Activity Activity: increase activity as tolerated Diet: other - VTE Documentation of Mechanical Device: Intermittent pneumatic compression device
--- NOTE | 2018-05-01 14:40 | Physician Discharge Referral ---
Home Health/Hosp Referral Info Transfer to: Home Health Attending Provider: Emilia Thomas Provider in Charge Post Discharge: PCP - Diagnosis (1) Hemoptysis Priority: Primary Status: Acute (2) PAD (peripheral artery disease) Priority: Secondary Status: Chronic (3) Atrial fibrillation, chronic Priority: Secondary Status: Chronic (4) Elevated troponin I level Priority: Secondary Status: Acute (5) Exertional dyspnea Priority: Secondary Status: Acute (6) Anemia Priority: Secondary Status: Acute (7) Elevated TSH Priority: Secondary Status: Acute (8) COPD (chronic obstructive pulmonary disease) Priority: Secondary Status: Acute (9) Dysphagia Priority: Secondary Status: Acute (10) Hypomagnesemia Priority: Secondary Status: Acute - Respiratory Orders Smoking Cessation: Smoking cessation has been advised. For more information, call the [employer] Quit Line at 4-321-RSMB-NOW. - Diet/Nutrition Diet/Nutrition: List: Honey thick liquids - Services Needed Following services are medically necessary services: Nursing, Home Health Aide, Physical Therapy, Occupational Therapy - Transfer Medications Prescriptions: levoFLOXacin [Levaquin] 500 mg PO DAILY #5 tablet predniSONE [PredniSONE] 10 mg PO DAILY #15 tablet Home Medications: Rivaroxaban [Xarelto] 20 mg PO DAILY 07/30/15 [History] Simvastatin [Zocor] 10 mg PO QPM 02/14/16 [History] Diltiazem CD (24hr) [Cardizem CD] 240 mg PO DAILY 01/26/17 [History] Albuterol Neb [AccuNeb] 0.63 mg IH PRN PRN 04/27/18 [History] Albuterol Sulfate [Proair Hfa] 2 puff IH Q6H 04/27/18 [History] Budesonide/Formoterol 160/4.5 [Symbicort 160/4.5] 1 puff IH BIDR 04/27/18 [ History] Cholecalciferol (Vitamin D3) [Vitamin D3] 2,000 unit PO DAILY 04/27/18 [History] Ferrous Sulfate [High Potency Iron] 65 mg PO DAILY 04/27/18 [History] Omeprazole [PriLOSEC] 40 mg PO DAILY 04/28/18 [History] levoFLOXacin [Levaquin] 500 mg PO DAILY #5 tablet 05/01/18 [Rx] predniSONE [PredniSONE] 10 mg PO DAILY #15 tablet 05/01/18 [Rx] Allergies/Adverse Reactions: 3 Allergy/AdvReac Type Severity Reaction Status Date / Time No Known Allergies Allergy Verified 04/28/18 07:45 Certification: Further, I certify that my clinical findings support that this patient is homebound (i.e. absences from home require considerable and taxing effort and are for medical reasons or religion services or infrequently or short duration when for other reasons) because: Homebound Reason: Severity of cardiac or pulmonary status limits activity tolerance Attestation: My signature below is to certify that this patient is under my care and that I, or nurse practitioner, or a physician's roofer assistant working with me, has a face-to -face encounter with this patient.
== END 2018-05-01 16:32 | disposition home health service (06) ==
LOC: 3BNU
PROVIDERS: ADMIT Internal Medicine; ATTEND Internal Medicine